=== PATIENT | male | born 1965 | race Caucasian/White ===

== ENCOUNTER 2016-09-17 17:56 | Emergency (ER) | payer OTHER ==
[~2016-09-17] VITALS: Ht 188 cm; Wt 168.8 kg
[~2016-09-17 17:56] MED LIST: ASPEC81 PO; BACL1TAB PO; FEXO1TAB58 PO; FRS/40 PO; GLC/500 PO; HYDR-3983 PO; INSUINJ12 SC; INSUINJ7 SC; LISI40TA PO; OMEP20CA9 PO; OXYC15TA89 PO; PREG1CAP70 PO; SULF800T23 PO; TAMS0.4C38 PO; TMPOPS15 OPB; TRAV0.00 OPB
[2016-09-17 18:07] VITALS: Ht 188 cm; Wt 168.8 kg
[2016-09-17] MEDS ORDERED: XYLOCAINE 1%/SOD BICARB 20 ML VIAL INFIL ONE (18:30)
[2016-09-17] MEDS ORDERED: LORAZEPAM 1 MG TAB SL STA (18:32)
[2016-09-17] MEDS ORDERED: CLC/300 PO (18:54)
[2016-09-17] MEDS ORDERED: TRAV0.00 OP (18:54)
[2016-09-17] MEDS ORDERED: LISI40TA PO (18:54)
[2016-09-17] MEDS ORDERED: LVMIPEN SQ (18:54)
[2016-09-17] MEDS ORDERED: HYDR-3983 PO (18:54)
[2016-09-17] MEDS ORDERED: IBUP-1428 PO (18:54)
[2016-09-17] MEDS ORDERED: TMPOPS15 OPB (18:54)
[2016-09-17] MEDS ORDERED: OXYC15TA89 PO (18:54)
[2016-09-17] MEDS ORDERED: NVLGI/PEN SQ (18:54)
[2016-09-17] MEDS ORDERED: FRS/40 PO (18:54)
[2016-09-17] MEDS ORDERED: PRLSR20 PO (18:54)
[2016-09-17] MEDS ORDERED: BACL10TA PO (18:54)
[2016-09-17] MEDS ORDERED: PREG1CAP70 PO (18:54)
[2016-09-17 19:55] LABS: BASO % 0.2 %; HEMATOCRIT 40.3 % (42-52); IG% 0.1 %; LYMPH % 22.3 %; LYMPH ABS # 1.81 K/uL (1.2-3.4); MEAN CELL VOLUME 90.4 fL (80-100); MEAN CORPUSCULAR HEMOGLOBIN 30.7 pg (25-34); MEAN PLATELET VOLUME 10.3 fL (7.4-10.4); MONO % 10.2 %; NEUT % 65.2 %; PLATELET COUNT 206 K/uL (130-400); RED BLOOD COUNT 4.46 M/uL (4.7-6.1); WHITE BLOOD COUNT 8.11 K/uL (4.8-10.8)
[2016-09-17 19:56] LABS: BASO ABS # 0.02 K/uL (0-0.2); COMPLETE YES
[2016-09-17 20:05] LABS: PARTIAL THROMBOPLASTIN RATIO 1.3; PROTHROMBIN TIME (PATIENT) 10.2 SECONDS (9.0-12.0)
[2016-09-17 20:12] LABS: BUN/CREATININE RATIO 22.8 (10-20); CALCIUM 8.5 mg/dl (8.5-10.1); POTASSIUM 4.4 mmol/L (3.5-5.1)
[2016-09-17 20:20] VITALS: BP 128/74; PULSE 86; TEMP 36.6; O2SAT 94
--- NOTE | 2016-09-17 20:25 | EMERGENCY ROOM VISIT NOTE ---
ED Visit Note The patient was fully evaluated by Dr. Monzon. I was asked to perform incision and drainage on the suspected abscess in the right posterior scrotal region. Verbal consent was obtained to perform the procedure. After saline and Betadine cleansing and 1 mL of 1% buffered lidocaine anesthesia, the abscess was incised with a number 11 scalpel blade. Care was taken to ensure that the testes were clear of the region. No purulent material was released. A swab was obtained for culture. The abscess cavity was further probed with a needle milk truck driver and revealed only blood. The area was cleaned with sterile saline and dressed with bacitracin and a bulky bandage. The patient tolerated the procedure well.
--- NOTE | 2016-09-18 01:19 | EMERGENCY ROOM VISIT NOTE ---
History Report prepared by Andres: Shayna Ramirez Under the Supervision of: Dr. Refugio Monzon M.D. First contact with patient: 18:18 Chief Complaint: OTHER COMPLAINT Stated Complaint: CYST - PRIVATE AREA History of Present Illness The patient is a 50 year old male who presents to the Emergency Room with complaints of worsening right-sided scrotal abscess that he noticed a few days ago. He states that there is a cyst on the right side of his scrotum that is painful. The cyst started draining pus yesterday, per the patient's . The patient is diabetic and he states that he has experienced similar abscesses in the past when his sugars are high. He has not had an abscess on his scrotum for several years, but his most recent abscesses have been on his legs. He has had the abscesses drained in the past. He adds that a previous abscess on his leg was not irrigated when it was drained and it came back so he went to his PCP and it resolved after irrigation. The patient's sugars have been high recently and when he measured it earlier today it was 310. He denies fevers, vomiting, and rashes. The patient's states that the patient had dental work done for a root canal a few days ago and started clindamycin yesterday. He is on the clindamycin for seven days. The patient and his thought that the procedure or the antibiotic could be contributing to his sugars being high. The patient states that he has never been diagnosed with MRSA. Source of History: patient, spouse/significant other () Onset: a few days ago Position: other (right side of scrotum) Quality: other (right-sided scrotal abscess) Timing: worsening Associated Symptoms: No fevers, No rash, No vomiting Review of Systems See HPI for pertinent positives & negatives. A total of 10 systems reviewed and were otherwise negative. Past Medical & Surgical Medical Problems: (1) Diabetes Family History No pertinent family history Social History Smoking Status: Current Every Day Smoker Marital Status: Housing Status: lives with family Current/Historical Medications Scheduled Baclofen (Lioresal), 10 MG PO TID Clindamycin HCl (Clindamycin HCl), 300 MG PO TID Furosemide (Lasix), 40 MG PO QAM Ibuprofen (Motrin), 800 MG PO Q8H Insulin Aspart (Novolog Flexpen), 30-50 UNITS SQ SLIDING SCALE Insulin Detemir (Levemir Flextouch), 68 UNITS SQ HS Lisinopril (Zestril), 40 MG PO QAM Omeprazole (Prilosec), 20 MG PO QAM Oxycodone Hcl (Oxycontin), 15 MG PO Q12 Pregabalin (Lyrica), 150 MG PO TID Timolol Maleate (Timolol 0.5% Oph Soln 15 Ml), 1 DROP OPB QAM Travoprost (Travatan Z), 1 DROPS OP HS Scheduled PRN Hydrocodone/Acetaminophen 7.5MG/325MG ([place] 7.5MG/325MG), 2 TABS PO Q6 PRN for Pain Allergies Coded Allergies: BEE STING (Unverified Allergy, Unknown, SWELLING, 09/17/16) Physical Exam Vital Signs Date Time Temp Pulse Resp B/P Pulse Ox O2 Delivery O2 Flow Rate FiO2 09/17/16 20:20 36.6 86 20 128/74 94 09/17/16 18:07 36.6 86 20 128/74 94 Room Air Physical Exam Constitutional: Vital signs reviewed. Eyes: Pupils are equal round reactive to light. Conjunctiva are noninjected. ENT: Pharynx is clear without erythema or exudate. Mucous membranes are moist. Neck supple without meningeal signs. Respiratory: Clear to auscultation bilaterally. Breath sounds are equal bilaterally. Cardiovascular: Regular rate and rhythm. No rubs or gallops. GI: Soft, nondistended and nontender. Bowel sounds are present. : 2 cm x 4 cm cutaneous abscess to the right groin. No drainage or surrounding cellulitis. No crepitus or evidence of Georgi's gangrene. Testicles nontender. Musculoskeletal: No peripheral edema. No lower extremity tenderness. Integumentary: No cyanosis. Neurological: The patient is awake and alert. No focal deficits. Psychiatric: Normal affect. Medical Decision & Procedures Laboratory Results 09/17/16 19:45 Red Blood Count 4.46, Mean Corpuscular Volume 90.4, Mean Corpuscular Hemoglobin 30.7, Mean Corpuscular Hemoglobin Concent 34.0, Mean Platelet Volume 10.3, Neutrophils (%) (Auto) 65.2, Lymphocytes (%) (Auto) 22.3, Monocytes (%) (Auto) 10.2, Eosinophils (%) (Auto) 2.0, Basophils (%) (Auto) 0.2, Neutrophils # (Auto ) 5.28, Lymphocytes # (Auto) 1.81, Monocytes # (Auto) 0.83, Eosinophils # (Auto ) 0.16, Basophils # (Auto) 0.02 09/17/16 19:45 Test 09/17/16 19:45 White Blood Count 8.11 K/uL (4.8-10.8) Red Blood Count 4.46 M/uL (4.7-6.1) Hemoglobin 13.7 g/dL (14.0-18.0) Hematocrit 40.3 % (42-52) Mean Corpuscular Volume 90.4 fL (80-100) Mean Corpuscular Hemoglobin 30.7 pg (25-34) Mean Corpuscular Hemoglobin Concent 34.0 g/dl (32-36) Platelet Count 206 K/uL (130-400) Mean Platelet Volume 10.3 fL (7.4-10.4) Neutrophils (%) (Auto) 65.2 % Lymphocytes (%) (Auto) 22.3 % Monocytes (%) (Auto) 10.2 % Eosinophils (%) (Auto) 2.0 % Basophils (%) (Auto) 0.2 % Neutrophils # (Auto) 5.28 K/uL (1.4-6.5) Lymphocytes # (Auto) 1.81 K/uL (1.2-3.4) Monocytes # (Auto) 0.83 K/uL (0.11-0.59) Eosinophils # (Auto) 0.16 K/uL (0-0.5) Basophils # (Auto) 0.02 K/uL (0-0.2) RDW Standard Deviation 44.2 fL (36.4-46.3) RDW Coefficient of Variation 13.4 % (11.5-14.5) Immature Granulocyte % (Auto) 0.1 % Immature Granulocyte # (Auto) 0.01 K/uL (0.00-0.02) Prothrombin Time 10.2 SECONDS (9.0-12.0) Prothromb Time International Ratio 1.0 (0.9-1.1) Activated Partial Thromboplast Time 32.7 SECONDS (21.0-31.0) Partial Thromboplastin Ratio 1.3 Anion Gap 6.0 mmol/L (3-11) Est Creatinine Clear Calc Drug Dose 149.3 ml/min Estimated GFR () 102.7 Estimated GFR (Non- 88.6 BUN/Creatinine Ratio 22.8 (10-20) Calcium Level 8.5 mg/dl (8.5-10.1) Laboratory results as reviewed by me. Medications Administered Medications (Trade) Dose Ordered Sig/Michelle Route Start Time Stop Time Status Last Admin Dose Admin Lidocaine HCl (Buffered Lidocaine 1% Inj) 20 ml ONE ONCE INFIL 09/17/16 18:30 09/17/16 18:31 DC 09/17/16 18:41 20 ML Lorazepam (Ativan Tab) 1 mg NOW STAT SL 09/17/16 18:32 09/17/16 18:34 DC 09/17/16 18:41 1 MG ED Course 1819: The patient was evaluated in room B11. A complete history and physical exam was performed. 1829: Ordered Lidocaine HCl 20 ml INFIL 1830: I asked Alfredo Marte PA-C to evaluate the patient to perform an incision and drainage on the patient's abscess. He informed me that the patient requested something to help him relax for the procedure. 1831: Ordered Ativan Tab 1 mg SL 1920: Alfredo Marte PA-C has performed an incision and drainage at this time. Please refer to his note for further details. He informed me that there was not any significant drainage from the abscess. 1921: I reevaluated the patient with Alfredo Marte PA-C. The abscess only expressed blood. 2006: I reassessed the patient and reviewed his current test results with him. We are still waiting on his chemistry panel results. 2023: Upon reevaluation, the patient appeared to have improvement of his symptoms. I discussed the remainder of dayanara's findings with him. He verbalized agreement of the treatment plan. He was discharged home. Medical Decision This is a 50-year-old male who presents with a lesion to his right groin. Differential diagnoses considered include cutaneous abscess, scrotal abscess, MRSA, cellulitis, Georgi's gangrene. I did perform a limited focused review of portions of the patient's old chart on the electronic medical record. The patient has had no recent pertinent visits to this hospital. Medication Reconciliation: I attest that I have personally reviewed the patient' s current medication list. Blood Pressure Screening: Patient was found to have normal blood pressure on screening and does not require follow-up. I did evaluate the patient as noted above. The patient has a cutaneous abscess to his right groin. His testicles appear unremarkable. There is no surrounding cellulitis or evidence of Georgi's gangrene. He does have a history of prior abscesses on his legs as well as on the scrotum in the past. He states that he has had no prior history of MRSA. IV access was established. I did order and review the patient's blood work as noted in the electronic medical record. He is not hyperglycemic. I&D was performed on the patient. I did perform the I&D with BUFFY Marte. He did anesthetize and cleanse the area. I did make a small incision over the area where pus had drained earlier. No pus was expressed. A culture was obtained. The patient was advised to follow closely with his doctor within 48 hours for recheck or to return here if unable to do so. He will continue taking his clindamycin which he has a prescription for 7 days. He will return for any worsening symptoms. He was discharged in good condition. Impression Primary Impression: Cutaneous abscess Scribe Attestation The scribe's documentation has been prepared under my direct and personally reviewed by me in its entirety. I confirm that the note above accurately reflects all work, treatment, procedures, and medical decision making performed by me. Departure Information Dispostion Home / Self-Care Referrals No Doctor, Assigned (PCP) Forms HOME CARE DOCUMENTATION FORM, IMPORTANT VISIT INFORMATION, WORK / SCHOOL INSTRUCTIONS Patient Instructions ED Abscess Tanya, Calista [facility] Additional Instructions You have been examined and treated today on an emergency basis only. This is not a substitute for, or an effort to provide, complete comprehensive medical care. It is impossible to recognize and treat all injuries or illnesses in a single emergency department visit. It is therefore important that you follow up closely with your physician in 48 hours for recheck. Call as soon as possible for an appointment. Return for worsening symptoms or if you develop fever, vomiting, or any other concerning symptoms. Problem Qualifiers Primary Impression: Cutaneous abscess Site of cutaneous abscess: other site Qualified Codes: L02.818 - Cutaneous abscess of other sites
[2017-03-06] MEDS ORDERED: INSU3INJ3 SC (12:37)
== END 2016-09-17 20:20 | disposition home or self-care (01) ==
LOC: C.EDB 18:00 → MERGE 18:00 → C.EDB 20:20
DX: N49.2 Inflammatory disorders of scrotum (principal); E11.9 Type 2 diabetes mellitus without complications; F17.200 Nicotine dependence, unspecified, uncomplicated; Z86.14 Personal history of Methicillin resistant Staphylococcus aureus infection; Z79.4 Long term (current) use of insulin; Z79.899 Other long term (current) drug therapy; Z91.030 Bee allergy status

== ENCOUNTER → 2016-11-18 | Outpatient (CLI) | payer OTHER ==
[~2016-11-18] MED LIST changes: +BACL10TA PO; +CLC/300 PO; +IBUP-1428 PO; +LVMIPEN SQ; +NVLGI/PEN SQ; +PERFLUTREN LIPID MICROSPHERE (DEFINITY) IV ONE; +PRLSR20 PO; +TRAV0.00 OP
--- NOTE | 2016-11-18 12:15 | DIAGNOSTIC IMAGING REPORT ---
LEFT ELBOW MIN 3 VIEWS ROUTINE CLINICAL HISTORY: 51 years-old Male presenting with numbness down the arm, injured a few months ago, pain down the arm to the level of the fingers. TECHNIQUE: Frontal, oblique, and lateral views of the left elbow were obtained. COMPARISON: None. FINDINGS: No acute fracture or malalignment. No radiopaque foreign body. No gross evidence of elbow joint effusion. Soft tissues normal. IMPRESSION: No acute osseous injury of the left elbow. Electronically signed by: Lui Dennis M.D. 11/18/2016 12:14 PM Dictated Date/Time: 11/18/2016 12:13 PM
--- NOTE | 2016-11-18 15:31 | DOBUTAMINE ECHO ---
*NOTICE TO RECEIVING CONSTITUTION PARTY AGENCY This information is strictly Confidential and protected under [place] law. [place] law prohibits you from making any further disclosure of this information unless further disclosure is expressly permitted by the written consent of the person to whom it pertains or is authorized by law. A general authorization for the release of medical or other information is not sufficient for this purpose. Hospital accepts no responsibility if the information is made available to any other person, INCLUDING THE PATIENT. Interpretation Summary * Name: MAGDA BRADY JR Study Date: 11/18/2016 10:09 AM BP: 123/68 mmHg * Patient Location: [facility] HR: 62 * : 1965 (M/d/yyyy) Gender: Male Height: 75 in * Age: 51 yrs Ethnicity: [place] Weight: 368 lb * Ordering Physician: Essie Mckee * Referring Physician: Essie Mckee PA-C * Performed By: Tahmina Nye RCS * * Reason For Study: Dyspnea * BSA: 2.8 m2 * -- Conclusions -- * 1. Severely technically limited study due to patient's body habitus. * 2. Non-diagnostic exercise stress echo due to inability to reach targert heart rate (MPHR 70%). * 3. Borderline ST changes, 0.[address] depressions in inferior leads with exercise. * 4. Severely reduced functional capacity. Exercised 3:12, acheiving 4.8 METS. Study stopped due to fatigue. * 5. Grossly normal LV size and function at rest. LVEF 55-60%. Grade II diastolic function. Grossly normal RV size and function. No apparent valvular pathology. * 6. Consider pharmacologic SPECT for further evaluation as indicated. Procedure Details * The study was technically difficult with many images being suboptimal in quality. * A contrast injection of Definity was performed to improve assessment of LV function. * Contrast was injected into an intravenous site in the right arm. * One vial of Definity ultrasound contrast was diluted in normal saline to a total volume of 10 ml. A total of '7' ml of solution was administered during imaging. * Lot # [id number] of Definity utilized for procedure. * Expiration date 1A. * The attending nurse who injected the contrast agent was MAX DALTON RN. Left Ventricle * The left ventricle is grossly normal size. * There is mild concentric left ventricular hypertrophy. * Ejection Fraction = 55-60%. Right Ventricle * The right ventricle is not well visualized. * The right ventricle is grossly normal size. * The right ventricular systolic function is qualitatively normal. Atria * The left atrium is mildly dilated. * The right atrium is mild to moderately dilated. * There is no evidence of atrial septal defect, but resolution does not allow assessment for a patent foramen ovale. Mitral Valve * The mitral valve is not well visualized. * There is no mitral valve stenosis. * There is trace mitral regurgitation. Tricuspid Valve * The tricuspid valve is not well visualized. * Significant tricuspid regurgitation is absent. Aortic Valve * The aortic valve is not well visualized. * No hemodynamically significant valvular aortic stenosis. * There is no significant aortic regurgitation. Pulmonic Valve * The pulmonic valve is not well visualized. Great Vessels * The aortic root and proximal ascending aorta are normal sized. Pericardium * There is no pericardial effusion. Stress Parameters * Normal baseline electrocardiogram. * There was a maximum .[address] segment depression in the inferior lead(s). * Rest heart rate was '57' BPM. * Rest blood pressure was '123/48' * Maximum heart rate achieved was 120 bpm. * Maximum heart rate was 70 % of maximum age-predicted heart rate. * Maximum blood pressure was '142/66' * Total exercise time was '3:12' * Maximum exercise MET level achieved was '4.8' METS * Maximum treadmill speed was '2.5' miles per hour. * Maximum treadmill elevation was '12'% grade. * Exercise was terminated due to 'Fatigue' * Target Heart Rate was not achieved due to dyspnea. * Exercise was stopped due to fatigue. Left Ventricular Findings with Stress * The study was technically limited with all images being suboptimal in quality. Left Ventricular Diastolic Function * Diastolic dysfunction, Grade II (pseudonormalization pattern). MMode 2D Measurements and Calculations IVSd 1.2 cm LVIDd 5.7 cm LVIDs 2.7 cm LVPWd 1.4 cm IVS/LVPW 0.83 FS 52.4 % EDV(Teich) 160.3 ml ESV(Teich) 27.4 ml EF(Teich) 82.9 % EDV(cubed) 185.6 ml ESV(cubed) 20.0 ml EF(cubed) 89.2 % LV mass(C)d 316.4 grams LV mass(C)dI 111.3 grams/m\S\2 SV(Teich) 132.9 ml SI(Teich) 46.7 ml/m\S\2 SV(cubed) 165.6 ml SI(cubed) 58.2 ml/m\S\2 Doppler Measurements and Calculations MV E max nataly 93.1 cm/sec MV A max nataly 59.7 cm/sec MV E/A 1.6 MV dec time 0.19 sec Ao V2 max 112.7 cm/sec Ao max PG 5.1 mmHg Ao max PG (full) 0.93 mmHg LV V1 max PG 4.2 mmHg LV V1 max 101.9 cm/sec
== END | disposition home or self-care (01) ==
LOC: C.CPL 09:33
PROVIDERS: ATTEND Physician Assistant
DX: R20.0 Anesthesia of skin (principal); R06.09 Other forms of dyspnea

== ENCOUNTER 2017-03-08 12:16 | Emergency (ER) | payer OTHER ==
[~2017-03-08] VITALS: Ht 190.5 cm; Wt 168.6 kg
[~2017-03-08 12:16] MED LIST changes: +INSU3INJ3 SC; -PERFLUTREN LIPID MICROSPHERE (DEFINITY) IV ONE
[2017-03-08 12:18] VITALS: TEMP 36.5; Ht 190.5 cm; Wt 168.6 kg
[2017-03-08] MEDS ORDERED: FLM4 PO (12:37)
[2017-03-08] MEDS ORDERED: HYD50 PO (12:38)
[2017-03-08] MEDS ORDERED: LIDO/EPINEPHRINE/SOD BICARB 20 ML VIAL INFIL ONE (12:45)
[2017-03-08] MEDS ORDERED: CEPH500C2 PO (13:30)
[2017-03-08] MEDS ORDERED: SULF800T23 PO (13:30)
--- NOTE | 2017-03-08 13:31 | EMERGENCY ROOM VISIT NOTE ---
ED Visit Note First contact with patient: 12:24 CHIEF COMPLAINT: Left buttock abscess 5 days HISTORY OF PRESENT ILLNESS: Patient is a 51-year-old white male who presents to the emergency department for evaluation of an abscess on the left buttocks that has been present for about 5 days. He noticed a red, warm, tender area on the inner aspect of the left buttock, near the gluteal crease last Monday. They started applying warm compresses and taking hot showers, and they were able to squeeze and manipulate the area to get some bloody, pus like discharge to drain on several occasions. He was seen at his PCP yesterday, where apparently they were not comfortable performing an I&D in the office, and referred him to general surgery. No antibiotics were started. Apparently patient contacted general surgery today and they directed him to the emergency department for intervention. He has a history of 2 scrotal abscesses in the past, but has never had an abscess at this site. He denies any fever or chills. No difficulty urinating or moving his bowels. He rates his discomfort a 7.5/10. He reports that his blood sugars have been well-controlled, despite the infection. He checked it just prior to coming to the emergency department and it was 120. REVIEW OF SYSTEMS: Review of systems as per HPI. All other systems reviewed were negative. 10 systems reviewed. PMH: Electronic medical records are reviewed and summarized as above/below. See Problem List. SOCIAL HISTORY: Patient lives at home. He is not employed. Smoker. PHYSICAL EXAM: Vital Signs: Reviewed Nurse's notes. CONSTITUTIONAL: Patient is a morbidly obese 51-year-old white male who is awake and alert and in no acute distress. INTEGUMENTARY: Examination of the patient's buttock, at the top of the medial cleft, to the left, there is a small, tender, minimally fluctuant area consistent with the scabbed over abscess. There is some surrounding induration , no overt cellulitic changes. The perirectal and the perianal areas are not involved. No lymphangitic streaking noted. EMERGENCY DEPARTMENT COURSE: Area was cleansed with Betadine, and anesthetized with 1% buffered lidocaine with epinephrine. The area of maximal fluctuance was incised with an 11 blade. There was scant purulent material which drained, there was definitely a well-defined cavity, probed with forceps to about a depth of 2-1/2 cm, however no significant loculations were noted. There was again, no overt cellulitic changes or significant pus like range after I&D. The abscess cavity was irrigated copiously using normal saline solution and diluted Betadine, playing.packing dipped in Betadine was placed. Patient will be placed on Bactrim and Keflex pending the culture, however I suspect the I&D may be adequate given the appearance of time. this certainly does not involve the perirectal or the perianal area. I do not suspect involvement or Georgi's gangrene. He has a female friend here today who is comfortable removing the packing in 48 hours. He should otherwise follow up with his PCP/ general surgery for recheck next week. Blood pressure screening: Patient was found to have an elevated blood pressure and was referred to their primary doctor for recheck and further treatment. Medication reconciliation: I attest that I have personally reviewed the patient' s current medication list. Problem List Medical Problems: (1) Abscess of right thigh Status: Resolved (2) Acute bronchitis Status: Resolved (3) Acute bronchitis Status: Resolved (4) Cellulitis of left leg Status: Resolved (5) Congestive Heart Failure Nos Status: Resolved (6) Coronary Atherosclerosis Of [place] Coronary Vessel Status: Chronic (7) Cutaneous abscess Status: Resolved (8) Dehydration Status: Resolved (9) Diabetes Status: Chronic (10) Ear pain, left Status: Resolved (11) Ear pain, left Status: Resolved (12) Eustachian tube dysfunction Status: Resolved (13) Gastro-Esophageal Reflux Disease Without Esophagitis Status: Chronic (14) Gastroenteritis Status: Resolved (15) Hypertension Nos Status: Chronic (16) Hypoglycemia Status: Resolved (17) Left ear pain Status: Resolved (18) Lumbago Status: Chronic (19) Morbid Obesity Status: Chronic (20) Obstructive Sleep Apnea (Adult) (Pediatric) Status: Chronic (21) Venous Insufficiency Nos Status: Chronic (22) Wound of left leg Status: Resolved Surgical Problems: (1) History of back surgery Status: Resolved (2) History of carpal tunnel release Status: Resolved Current/Historical Medications Scheduled Baclofen (Lioresal), 10 MG PO TID Cephalexin Monohydrate (Keflex), 500 MG PO QID Hydrochlorothiazide (Hydrochlorothiazide), 1 TAB PO DAILY Ibuprofen (Motrin), 800 MG PO Q8H Insulin Aspart (Novolog Flexpen), 20-30 UNITS SQ SLIDING SCALE Insulin Detemir (Levemir Flextouch), 78 UNITS SC HS Omeprazole (Prilosec), 20 MG PO QAM Oxycodone Hcl (Oxycontin), 15 MG PO Q12 Pregabalin (Lyrica), 150 MG PO TID Sulfa/Trimethoprim (Bactrim Ds 800MG/160MG), 1 TAB PO BID Tamsulosin HCl (Tamsulosin HCl), 1 TAB PO DAILY Timolol Maleate (Timolol 0.5% Oph Soln 15 Ml), 1 DROP OPB DAILY Travoprost (Travatan Z), 1 DROPS OP HS Scheduled PRN Hydrocodone/Acetaminophen 7.5MG/325MG ([place] 7.5MG/325MG), 2 TABS PO Q6 PRN for Pain Allergies Coded Allergies: BEE STING (Verified Allergy, Mild, 03/08/17) Vital Signs Date Time Temp Pulse Resp B/P (MAP) Pulse Ox O2 Delivery O2 Flow Rate FiO2 03/08/17 12:18 36.5 78 20 174/76 95 Room Air Departure Information Impression Primary Impression: Left buttock abscess Prescriptions Sulfa/Trimethoprim (Bactrim Ds 800MG/160MG) Tab 1 TAB PO BID, #14 TAB Prov: Suzanne Quach PA 03/08/17 Cephalexin Monohydrate (KEFLEX) 500 Mg Cap 500 MG PO QID for 7 Days, #28 CAP Prov: Suzanne Quach PA 03/08/17 Referrals No Doctor, Assigned (PCP) Patient Instructions [facility] Additional Instructions Cephalexin(Keflex) 500mg: Take one pill four times daily for 7 days for your skin infection. All antibiotics can cause diarrhea. If this occurs and you feel worse or it does not resolve in 1-2 days follow up with your doctor or return to the Emergency Department as this could be signs of serious underlying problems. Any medication can cause an allergic reaction, stop the pills immediately and return to the ER for rash, hives, breathing difficulties, or swelling. Trimethoprim-Sulfamethoxazole(Bactrim DS): Take one pill twice daily for 7 days for your skin infection. All antibiotics can cause diarrhea. If this occurs and you feel worse or it does not resolve in 1-2 days follow up with your doctor or return to the Emergency Department as this could be signs of serious underlying problems. Any medication can cause an allergic reaction, stop the pills immediately and return to the ER for rash, hives, breathing difficulties, or swelling. Ibuprofen(Motrin, Advil) may be used for fever or pain. Use 600mg every six hours as needed. Take with food. Avoid using more than 2400mg in a 24 hour period. Do not use 2400mg per day for more than three consecutive days without physician direction. Prolonged inappropriate use can lead to stomach upset or ulcers. (AND/OR) Acetaminophen(Tylenol) may be used for fever or pain. Use 1000mg every six hours as needed. Avoid using more than 3000mg in a 24 hour period. Warm compresses to the affected area 4 times daily for 15-20 minutes. Dressing changes daily, more often if bandage becomes saturated or soiled. May shower. Be careful to not remove the packing inadvertently, when they were performing dressing changes. Packing removal in 48 hours. Rest and drink plenty of fluids. Continue current medications. Return to the ER for severe pain, persistent fevers, spreading redness, or any worsening of your condition. Follow up with your primary physician next week for a recheck of the current condition.
--- NOTE | 2017-03-08 13:53 | EMERGENCY ROOM VISIT NOTE ---
ED Visit Note First contact with patient: 12:24 The patient was seen and examined with Birdie Quach PA-C. I agree with the history, physical and findings. Please see the note for disposition and details.
[2017-03-08 13:55] VITALS: BP 147/79; PULSE 87; O2SAT 97
== END 2017-03-08 13:56 | disposition home or self-care (01) ==
LOC: C.EDB 12:18 → C.EDD 13:56
DX: L02.31 Cutaneous abscess of buttock (principal); F17.200 Nicotine dependence, unspecified, uncomplicated; E11.9 Type 2 diabetes mellitus without complications; I25.10 Atherosclerotic heart disease of native coronary artery without angina pectoris; I10 Essential (primary) hypertension; K21.9 Gastro-esophageal reflux disease without esophagitis; Z98.890 Other specified postprocedural states; Z79.4 Long term (current) use of insulin; Z79.899 Other long term (current) drug therapy

== ENCOUNTER → 2017-07-24 | Outpatient (CLI) | payer OTHER ==
[~2017-07-24] MED LIST changes: -ASPEC81 PO; -BACL1TAB PO; -CLC/300 PO; -FEXO1TAB58 PO; +FLM4 PO; -FRS/40 PO; -GLC/500 PO; +HYD50 PO; -INSUINJ12 SC; -INSUINJ7 SC; -LISI40TA PO; -LVMIPEN SQ; -OMEP20CA9 PO; -TAMS0.4C38 PO; -TRAV0.00 OPB
--- NOTE | 2017-07-24 16:29 | DIAGNOSTIC IMAGING REPORT ---
ULTRASOUND LEFT LOWER EXTREMITY VENOUS CLINICAL HISTORY: Left leg edema. COMPARISON STUDY: Left lower extremity venous ultrasound dated 03/03/2007 TECHNIQUE: Real-time, grayscale, and color Doppler sonography of the deep veins of the left lower extremity was performed from the inguinal crease to the calf. Compression was utilized with tolerated. The examination is degraded by large body habitus and by inability of the patient to Hutchins tolerate compression. FINDINGS: There is no sonographic evidence of deep venous thrombosis identified in the left lower extremity. The common femoral, superficial femoral, and popliteal veins are patent and normally compressible. The greater saphenous vein and the profunda femoris vein at the junction with the common femoral vein are clear. The visualized calf veins are patent. IMPRESSION: There is no sonographic evidence of deep venous thrombosis identified in the left lower extremity. Electronically signed by: Lazarus Montes M.D. 07/24/2017 4:28 PM Dictated Date/Time: 07/24/2017 4:27 PM
== END | disposition home or self-care (01) ==
LOC: C.ULTR 15:47
PROVIDERS: ATTEND Physician Assistant
DX: L53.9 Erythematous condition, unspecified (principal); R60.0 Localized edema

== ENCOUNTER → 2017-09-12 | Outpatient (CLI) | payer OTHER ==
[~2017-09-12] MED LIST changes: -SULF800T23 PO
--- NOTE | 2017-09-12 08:59 | DIAGNOSTIC IMAGING REPORT ---
DOUBLE CONTRAST BARIUM ESOPHAGRAM CLINICAL HISTORY: Belching and dyspnea. COMPARISON STUDY: Abdominal CT dated 03/12/2016. TECHNIQUE: A standard air contrast barium esophagram is performed. Multiple spot images of the esophagus are acquired both upright and prone. FINDINGS: The patient swallowed barium and the barium pill without difficulty. The mucosal pattern is normal. Minimal dysmotility is seen in the distal third. There is no evidence of intrinsic or extrinsic mass lesion. No aspiration was seen. The gastroesophageal junction distended normally. Gastroesophageal reflux was observed during the examination. There is a small hiatal hernia. Fluoroscopy time: 1 minute. Fluoroscopic images: 22 IMPRESSION: 1. Gastroesophageal reflux was observed during the examination. 2. Small hiatal hernia. Electronically signed by: Lazarus Montes M.D. 09/12/2017 8:58 AM Dictated Date/Time: 09/12/2017 8:55 AM
== END | disposition home or self-care (01) ==
LOC: C.RAD 08:13
PROVIDERS: ATTEND Physician Assistant
DX: R06.02 Shortness of breath (principal); R14.2 Eructation; K21.9 Gastro-esophageal reflux disease without esophagitis; K44.9 Diaphragmatic hernia without obstruction or gangrene

== ENCOUNTER → 2017-11-16 | Outpatient (CLI) | payer OTHER ==
--- NOTE | 2017-11-16 12:46 | DIAGNOSTIC IMAGING REPORT ---
CHEST 2 VIEWS ROUTINE HISTORY: 52 years-old Male SOB, COUGH acute cough with shortness of breath COMPARISON: Chest radiographs 03/12/2016 TECHNIQUE: PA and lateral views of the chest FINDINGS: Cardiomediastinal and hilar silhouettes are within normal limits. There is no pneumothorax, pleural effusion, focal airspace consolidation or overt pulmonary edema. The bones of the chest appear grossly intact. There are degenerative changes of the shoulders and spine. IMPRESSION: No acute process. The above report was generated using voice recognition software. It may contain grammatical, syntax or spelling errors. Electronically signed by: oRberto Carlos Carbajal M.D. 11/16/2017 12:45 PM Dictated Date/Time: 11/16/2017 12:44 PM
== END | disposition home or self-care (01) ==
LOC: C.RAD 12:14
PROVIDERS: ATTEND Physician Assistant
DX: R06.02 Shortness of breath (principal); R05 Cough

== ENCOUNTER 2022-07-21 11:57 | Observation (INO) ==
[2022-07-21] MEDS ORDERED: SODIUM CHLORIDE 0.9% 1000ML 1,000 ML IV STA (12:07)
--- NOTE | 2022-07-21 12:07 | ED Triage Note ---
Date of Service July 21, 2022 History of Present Illness This patient was briefly evaluated while in triage. An abbreviated physical exam was performed. This patient is a 56-year-old Male who presents to the ED for evaluation of upper abdominal pain with no bowel movements for the past 4 days. The patient has taken stool softeners and laxative without relief. He has also been noted male intake and portillo. Patient did have a colonoscopy last February, and reported that his bowel was not completely encouraged at that time. Patient denies any vomiting or fever. Physical Exam CONSTITUTIONAL: Morbidly obese in moderate discomfort. HEENT: No scleral icterus or conjunctival injection/pallor RESPIRATORY: Clear to auscultation bilaterally with no wheezing, crackles, rhonchi or stridor. CARDIOVASCULAR: Regular rate and rhythm with no murmurs, rubs or gallops. GASTROINTESTINAL: Bowel sounds present in all quadrants. Patient has generalized upper abdominal tenderness to palpation. No abdominal rigidity, guarding or rebound. INTEGUMENTARY: No rash or other significant dermatologic conditions noted. HEMATOLOGIC: No ecchymosis or petechiae. PSYCHIATRIC: Positive affect. NEUROLOGIC: No focal neurologic deficits noted. Initial orders for labs and / or imaging were placed and patient was placed in the waiting area until a bed is available. Please see further documentation for the full ED course.
--- NOTE | 2022-07-21 13:19 | XRay Report ---
XR abdomen 2V w PA chest CLINICAL HISTORY: Abd pain TECHNIQUE: 2 views of the abdomen were obtained. A single view of the chest was obtained. Comparison: Comparison is made to chest radiograph 03/10/2016 FINDINGS: No lines and tubes are seen. Cardiomegaly is noted. The lungs are clear. No evidence of pleural effus ion or pneumothorax. Posterior fixation hardware is seen in the lumbar spine. The bowel gas pattern is nonobstructive. A m oderate amount of stool is noted within the large bowel. IMPRESSION: Nonobstructive bowel gas pattern. ACT 112: Negative or not required by law. Electronically signed by: Edwin Mathis M.D. 07/21/2022 1:17 PM
[2022-07-21 13:52] LABS: Basophils # (auto) 0.01 K/uL (0-0.2); Basophils % (auto) 0.1 %; Eosinophils # (auto) 0.07 K/uL (0-0.50); Eosinophils % (auto) 0.7 %; Hematocrit (blood only) 45.5 % (42.0-52.0); Immature Granulocytes # (auto) 0.04 K/uL (0.01-0.20); Immature Granulocytes % (auto) 0.4 %; Lymphocytes # (auto) 1.64 K/uL (1.2-3.4); Lymphocytes % (auto) 16.6 %; Mean Corpuscular Hemoglobin 31.3 pg (25.0-34.0); Mean Corpuscular Hgb Conc 35.2 g/dL (32.0-36.0); Mean Platelet Volume 10.8 fL (9.4-12.4); Monocytes # (auto) 0.75 K/uL (0.11-0.59); Monocytes % (auto) 7.6 %; Neutrophils # (auto) 7.34 K/uL (1.40-6.50); Neutrophils % (auto) 74.6 %; Platelet Count 215 K/uL (130-400); RDW Coefficient of Variation 13.2 % (11.5-14.5); RDW Standard Deviation 43.1 fL (36.4-46.3); Red Blood Count 5.11 M/uL (4.70-6.10); White Blood Count 9.85 K/ul (4.8-10.8)
[2022-07-21 14:29] LABS: Troponin I High Sensitivity 17.1 pg/ml (0-20)
[2022-07-21 14:38] LABS: Albumin Level 4.2 gm/dl (3.4-5.0); Anion Gap 8 (3-11); Bilirubin,Total 0.7 mg/dl (0.2-1.0); Calcium 9.8 mg/dl (8.6-10.3); Carbon Dioxide 25 mmol/L (21-32); Chloride 98 mmol/L (98-107); Potassium 4.4 mmol/L (3.5-5.1); Sodium 131 mmol/L (136-145)
[2022-07-21 14:44] LABS: Alanine Aminotransferase 16 U/L (7-52); Albumin Globulin Ratio 1.2 (0.9-2); Alkaline Phosphatase 57 U/L (34-104); Aspartate Aminotransferase 13 U/L (13-39); BUN Creatinine Ratio 16.2 (10-20); Blood Urea Nitrogen 17 mg/dl (6-23); Est GFR (African American) 92.8 ml/min; Est GFR (Non-African American) 80.1 ml/min; Globulin 3.5 gm/dl (2.5-4.0); Glucose 181 mg/dl (70-99(Fasting)); Lipase 22 U/L (11-82); Total Protein 7.7 gm/dl (6.0-8.3)
[2022-07-21] MEDS ORDERED: MoRPHine SULFATE 10 MG/ML CARP/VIAL IV STA (14:57)
[2022-07-21] MEDS ORDERED: SODIUM CHLORIDE 0.9% 1000ML 2,000 ML IV ONE (14:57)
[2022-07-21] MEDS ORDERED: ONDANSETRON INJ 2 MG/ML 2 ML VIAL IV STA (14:57)
--- NOTE | 2022-07-21 15:01 | Emergency Department Note ---
Impression & Plan Abdominal pain, Cholelithiasis ED Provider Note NAME: MAGDA BRADY JR AGE: 56 SEX: M : 1965 ARRIVES VIA: Walk-In INFORMANT: Patient ED PROVIDER(S): Ayad Chavez DO CHIEF COMPLAINT: abdominal pain HPI: Patient is a 56-year-old male who presents to the ER for periumbilical abdominal pain associated with nausea but no vomiting. He has not had a bowel movement in 4 days. Denies any headache or change in vision. No chest pain or shortness of breath. Is worse after eating and does get some pain that radiates up into the chest after eating. No dysuria, urgency, or frequency. Notes he has been urinating less due to the pain. No previous abdominal surgeries. No other exacerbating or remitting factors. PAST MEDICAL HISTORY:See Below PAST SURGICAL HISTORY:See Below FAMILY HISTORY:See Below SOCIAL HISTORY:See Below HOME MEDICATIONS:See Below ALLERGIES:See Below VITALS:See Below PHYSICAL EXAMINATION: GENERAL: Sitting up in bed, alert, well appearing, well nourished, no distress, non-toxic EYE EXAM: normal conjunctiva. OROPHARYNX: mucous membranes are moist LUNGS: Clear to auscultation. Normal chest wall mechanics HEART: no murmurs, S1 normal and S2 normal ABDOMEN: abdomen soft, mild tenderness to palpation epigastric and RUQ, normo- active bowel sounds, no masses, no rebound or guarding. UPPER EXTREMITIES: upper extremities are grossly normal. LOWER EXTREMITIES: No pitting edema. NEURO EXAM: Normal sensorium, cranial nerves II-XII grossly intact, normal speech, no gross weakness of arms, no gross weakness of legs. MEDICAL DECISION MAKING: Patient is a 56-year-old male who presents ER for above-stated complaint. External records were reviewed. IV was established blood work was obtained. Labs show no significant leukocytosis or anemia. BMP with mild hyponatremia at 131. LFTs bilirubin was unremarkable. Troponin was negative. Lipase is unremarkable. UA was clean. COVID was negative. He is acutely tender in the epigastric/right upper quadrant. He was given 2 doses of IV morphine as well as Zofran and fluids. CT abdomen pelvis showed cholelithiasis with a distended gallbladder. Discussed with general surgery as he was tender they recommended admission to medicine and a HIDA scan. Discussed with the hospitalist for further evaluation and management Dr. Rodriguez. Triage Nursing notes reviewed. Limited review of prior medical records performed Vital Signs: reviewed and remarkable for no significant abnormalities Differential diagnosis: Differential diagnoses includes but is not limited to gastritis, peptic ulcer disease, GERD, gallbladder disease, pancreatitis, small bowel obstruction, appendicitis, diverticulitis, hernia, urinary tract infection, torsion, perforation, trauma, infectious. ER treatment provided: See below Diagnostics interpreted by me include EKG and cardiac monitoring as listed below: -Cardiac Monitoring: An order was placed for continuous cardiac monitoring. The monitor shows a rate of 70 with sinus rhythm. -ECG: Sinus bradycardia rate of 56 Normal axis Right bundle branch block QTc 422 -Laboratory studies:Interpreted by me as stated above in MDM and shown below. Imaging studies: Xrays: As interpreted by me: Obstruction series shows nonspecific bowel gas pattern CTs show: CT abdomen pelvis shows distended gallbladder but no acute pathology Consultation(s): As described in MDM Procedures:none Critical Care: None Past Med/Surg History Medical History (Updated 07/21/22 @ 19:36 by Ayad Chavez DO) Anxiety BPH (benign prostatic hyperplasia) Depression Diabetes mellitus type 1 GERD (gastroesophageal reflux disease) Glaucoma Hiatal hernia Hyperlipidemia Hypertension Osteoarthritis Peripheral neuropathy Sleep apnea not currently using CPAP, sleeping in recliner Surgical History Cellulitis of leg RT/LEFT LEG ABLATIONS? Cyst REMOVAL Fusion of spine LUMBAR; L3-L5 History of anesthesia reaction CYST REMOVAL WAS TOLD "ALMOST LOST ON TABLE BY NURSE">UNSURE OF DETAILS History of carpal tunnel release LEFT History of tooth extraction Hx of colonoscopy Family History Mother Family history of diabetes mellitus Social History Smoking Status: Current every day smoker Cigarettes Per Day: 30 -ADVISED; Second Hand Exposure: No; Hx Alcohol Use: No Hx Substance Use: No Preferred Language: Salvadorean Communication Ability: Effective Gore Maker Required: No Beliefs That Will Affect Care: None Current Living Situation: Other Current Living Situation Comment: FRIEND Feels Safe at Home: Yes Assistive Devices: Cane, CPAP and Glasses Allergies Allergies Allergy/AdvReac Type Severity Reaction Status Date / Time bee venom protein (honey bee) Allergy Severe Swelling Verified 07/21/22 16:55 of Lip/Tongue/Throat gabapentin [From Neurontin] AdvReac Severe Confusion Verified 07/21/22 16:55 Home Meds Home Medications Medication Instructions Recorded Confirmed baclofen 10 mg tablet 10 mg PO TID 12/26/17 07/21/22 hydrochlorothiazide 50 mg tablet 50 mg PO QAM 12/26/17 07/21/22 hydrocodone 7.5 mg-acetaminophen 1 tab PO QID PRN Pain 12/26/17 07/21/22 325 mg tablet insulin aspart U-100 100 unit/mL 1 dose subcut TID 12/26/17 07/21/22 (3 mL) subcutaneous pen (Novolog FlexPen U-100 Insulin aspart) insulin detemir U-100 100 unit/mL 70 unit subcut HS 12/26/17 07/21/22 (3 mL) subcutaneous pen (Levemir FlexTouch U-100 Insulin) lisinopril 40 mg tablet 40 mg PO QAM 12/26/17 07/21/22 metformin 1,000 mg tablet 1,000 mg PO BID 12/26/17 07/21/22 omeprazole 20 mg delayed 1 tab PO QAM 12/26/17 07/21/22 release,disintegrating tablet oxycodone 15 mg tablet,crush 15 mg PO Q12H 12/26/17 07/21/22 resistant,extended release 12 hr (OxyContin) pregabalin 150 mg capsule (Lyrica) 150 mg PO TID 12/26/17 07/21/22 tamsulosin 0.4 mg capsule 0.4 mg PO QAM 12/26/17 07/21/22 timolol 0.25 % eye drops 1 drp OPB QAM 12/26/17 07/21/22 travoprost 0.004 % eye drops 1 drp OPB PM 12/26/17 07/21/22 (Travatan Z) aspirin 81 mg tablet,delayed 81 mg PO DAILY 07/21/22 07/21/22 release Results & Data (ED) Vital Signs Vital Signs - 24 hr 07/21/22 12:03 07/21/22 12:07 07/21/22 18:43 Temperature 36.5 C Temperature Source Temporal Artery Scan Pulse Rate 65 Pulse Rate [Finger] 98 H 62 Respiratory Rate 20 20 21 Respiratory Effort / Characteristics Non-Labored Spontaneous Respiratory Depth Normal Respiratory Pattern Regular Blood Pressure 191/78 H Blood Pressure [Right Radial Artery] 164/49 H 121/105 H Blood Pressure Mean 115 Blood Pressure Mean [Right Radial Artery] 87 110 Blood Pressure Position Sitting Blood Pressure Position [Right Radial Artery] Lying Sitting Pulse Oximetry 96 97 96 Oxygen Delivery Method Room Air Room Air Room Air Sepsis Recent Fever Within 48 Hours No Sepsis New/Unexplained Change in Mental Status No Sepsis Action Taken by Nursing No Action Required 07/21/22 19:01 Temperature Temperature Source Pulse Rate 57 L Pulse Rate [Finger] Respiratory Rate Respiratory Effort / Characteristics Respiratory Depth Respiratory Pattern Blood Pressure Blood Pressure [Right Radial Artery] Blood Pressure Mean Blood Pressure Mean [Right Radial Artery] Blood Pressure Position Blood Pressure Position [Right Radial Artery] Pulse Oximetry Oxygen Delivery Method Sepsis Recent Fever Within 48 Hours Sepsis New/Unexplained Change in Mental Status Sepsis Action Taken by Nursing Laboratory Data 07/21/22 13:13 07/21/22 13:13 Lab Results 07/21/22 07/21/22 07/21/22 Range/Units 13:13 13:13 17:14 WBC 9.85 (4.8-10.8) K/ul RBC 5.11 (4.70-6.10) M/uL Hgb 16.0 (14.0-18.0) g/dl Hct 45.5 (42.0-52.0) % MCV 89.0 (80.0-100.0) fL MCH 31.3 (25.0-34.0) pg MCHC 35.2 (32.0-36.0) g/dL RDW Std Deviation 43.1 (36.4-46.3) fL RDW Coeff of [place] 13.2 (11.5-14.5) % Plt Count 215 (130-400) K/uL MPV 10.8 (9.4-12.4) fL Immature Gran % (Auto) 0.4 % Neut % (Auto) 74.6 % Lymph % (Auto) 16.6 % [place] % (Auto) 7.6 % Eos % (Auto) 0.7 % Baso % (Auto) 0.1 % Neut # (Auto) 7.34 H (1.40-6.50) K/uL Lymph # (Auto) 1.64 (1.2-3.4) K/uL [place] # (Auto) 0.75 H (0.11-0.59) K/uL Eos # (Auto) 0.07 (0-0.50) K/uL Baso # (Auto) 0.01 (0-0.2) K/uL Immature Gran # (Auto) 0.04 (0.01-0.20) K/uL Sodium 131 L (136-145) mmol/L Potassium 4.4 (3.5-5.1) mmol/L Chloride 98 (98-107) mmol/L Carbon Dioxide 25 (21-32) mmol/L Anion Gap 8 (3-11) BUN 17 (6-23) mg/dl Creatinine 1.05 (0.6-1.4) mg/dl Est Cr Clr Drug Dosing Not Reportable Est GFR ( Amer) 92.8 ml/min Est GFR (Non-Af Amer) 80.1 ml/min BUN/Creatinine Ratio 16.2 (10-20) Glucose 181 H (70-99(Fasting)) mg/dl Calcium 9.8 (8.6-10.3) mg/dl Total Bilirubin 0.7 (0.2-1.0) mg/dl AST 13 (13-39) U/L ALT 16 (7-52) U/L Alkaline Phosphatase 57 (34-104) U/L Troponin I High Sens 17.1 (0-20) pg/ml Total Protein 7.7 (6.0-8.3) gm/dl Albumin 4.2 (3.4-5.0) gm/dl Globulin 3.5 (2.5-4.0) gm/dl Albumin/Globulin Ratio 1.2 (0.9-2) Lipase 22 (11-82) U/L Urine Color Yellow Urine Appearance Clear (Clear) Urine pH 6.5 (4.5-7.5) Ur Specific [place] 1.018 (1.000-1.030) Urine Protein Negative (Negative) Urine Glucose (UA) Negative (Negative) Urine Ketones Negative (Negative) Urine Blood Negative (Negative) Urine Nitrite Negative (Negative) Urine Bilirubin Negative (Negative) Urine Urobilinogen Negative (Negative) Ur Leukocyte Esterase Negative (Negative) SARS-CoV-2, RNA, NAAT (NEGATIVE) 07/21/22 Range/Units 18:00 WBC (4.8-10.8) K/ul RBC (4.70-6.10) M/uL Hgb (14.0-18.0) g/dl Hct (42.0-52.0) % MCV (80.0-100.0) fL MCH (25.0-34.0) pg MCHC (32.0-36.0) g/dL RDW Std Deviation (36.4-46.3) fL RDW Coeff of [place] (11.5-14.5) % Plt Count (130-400) K/uL MPV (9.4-12.4) fL Immature Gran % (Auto) % Neut % (Auto) % Lymph % (Auto) % [place] % (Auto) % Eos % (Auto) % Baso % (Auto) % Neut # (Auto) (1.40-6.50) K/uL Lymph # (Auto) (1.2-3.4) K/uL [place] # (Auto) (0.11-0.59) K/uL Eos # (Auto) (0-0.50) K/uL Baso # (Auto) (0-0.2) K/uL Immature Gran # (Auto) (0.01-0.20) K/uL Sodium (136-145) mmol/L Potassium (3.5-5.1) mmol/L Chloride (98-107) mmol/L Carbon Dioxide (21-32) mmol/L Anion Gap (3-11) BUN (6-23) mg/dl Creatinine (0.6-1.4) mg/dl Est Cr Clr Drug Dosing Est GFR ( Amer) ml/min Est GFR (Non-Af Amer) ml/min BUN/Creatinine Ratio (10-20) Glucose (70-99(Fasting)) mg/dl Calcium (8.6-10.3) mg/dl Total Bilirubin (0.2-1.0) mg/dl AST (13-39) U/L ALT (7-52) U/L Alkaline Phosphatase (34-104) U/L Troponin I High Sens (0-20) pg/ml Total Protein (6.0-8.3) gm/dl Albumin (3.4-5.0) gm/dl Globulin (2.5-4.0) gm/dl Albumin/Globulin Ratio (0.9-2) Lipase (11-82) U/L Urine Color Urine Appearance (Clear) Urine pH (4.5-7.5) Ur Specific [place] (1.000-1.030) Urine Protein (Negative) Urine Glucose (UA) (Negative) Urine Ketones (Negative) Urine Blood (Negative) Urine Nitrite (Negative) Urine Bilirubin (Negative) Urine Urobilinogen (Negative) Ur Leukocyte Esterase (Negative) SARS-CoV-2, RNA, NAAT NEGATIVE (NEGATIVE) Administered Medications Discontinued Medications Sodium Chloride (Nss 1000ml) 1,000 mls @ 999 mls/hr IV .Q1H1M STA Stop: 07/21/22 13:07 Last Admin: 07/21/22 16:56 Dose: Not Given Documented By: QGV Sodium Chloride (Nss 1000ml) 2,000 mls @ 999 mls/hr IV .Q2H1M ONE Stop: 07/21/22 16:57 Last Infusion: 07/21/22 18:09 Dose: 0 mls/hr Documented By: Admin: 07/21/22 16:04 Dose: 999 mls/hr Documented By: QGV Ioversol (Optiray 320 500ml) 110 ml IV ONCE ONE Stop: 07/21/22 15:45 Last Admin: 07/21/22 15:44 Dose: 110 ml Documented By: SYLVIA Morphine Sulfate (Morphine Sulfate 10 Mg/Ml Carp/Vial) 6 mg IV NOW STA Stop: 07/21/22 14:58 Last Admin: 07/21/22 16:04 Dose: Not Given Documented By: QGV Ondansetron HCl (Ondansetron Inj 2 Mg/Ml 2 Ml Vial) 4 mg IV NOW STA Stop: 07/21/22 14:58 Last Admin: 07/21/22 16:04 Dose: 4 mg Documented By: QGV Imaging Data Radiologist's Impression: Chest/Abdomen X-ray 07/21/22 12:07 XR abdomen 2V w PA chest CLINICAL HISTORY: Abd pain TECHNIQUE: 2 views of the abdomen were obtained. A single view of the chest was obtained. Comparison: Comparison is made to chest radiograph 03/10/2016 FINDINGS: No lines and tubes are seen. Cardiomegaly is noted. The lungs are clear. No evidence of pleural effusion or pneumothorax. Posterior fixation hardware is seen in the lumbar spine. The bowel gas pattern is nonobstructive. A moderate amount of stool is noted within the large bowel. IMPRESSION: Nonobstructive bowel gas pattern. ACT 112: Negative or not required by law. Electronically signed by: Edwin Mathis M.D. 07/21/2022 1:17 PM Abdomen/Pelvis CT 07/21/22 14:[address] WITH IV CONTRAST CT DOSE: 1825.33 mGy.cm HISTORY: Acute mid abdominal pain mid abd pain TECHNIQUE: Multiaxial CT images of the abdomen and pelvis were performed following the IV administration of 110 cc of Optiray, A dose lowering technique was utilized adhering to the principles of ALARA. COMPARISON STUDY: Acute abdominal series radiographs of same day, CT abdomen and pelvis 03/12/2016 FINDINGS: Mild cardiomegaly with mediastinal lipomatosis. Clear lung bases. No pneumatosis or pneumoperitoneum. Spleen is mildly enlarged, 14.2 cm. Liver measures up to 23 cm in length with hepatic steatosis. No hepatic mass or evidence of cirrhosis. Patency of the hepatic and portal veins. Distended gallbladder with cholelithiasis. No CT evidence of acute cholecystitis or b iliary ductal dilation. Unremarkable adrenal glands and pancreas. Mild nonspecific bilateral perinephric stranding. Ill-defined area of decreased attenuation within the superior pole left kidney measuring 1.6 cm on image 160 similar to prior suggestive of a probable cyst. Unremarkable prostate and urinary bladder. Atherosclerosis of the aorta. 9 mm right iliac chain lymph node on image 292 is stable from prior and is likely benign. Additional enlarged iliac chain lymph nodes with large central fatty maylin are also similar prior measuring up to 1.4 cm there are likely benign. Mild nonspecific distal esophageal wall thickening. Redundancy of the sigmoid colon. There is no bowel obstruction or bowel wall thickening. Moderate colonic fecal retention. Normal appendix. No ascites or mesenteric inflammation. Unremarkable soft tissues. 3.9 cm sclerotic focus of the left iliac bone on image 3:15 is unchanged. Posterior interbody maggie and screw fusion hardware at L3-L5 with L4-L5 discectomy. The L3 pedicle screws extend to the inferior endplate. IMPRESSION: 1. No acute intra-abdominal or intrapelvic abnormality. Normal appendix. 2. Distended gallbladder with cholelithiasis. No wall thickening or pericholecystic edema to suggest acute cholecystitis. 3. Hepatosplenomegaly with hepatic steatosis. 4. Additional findings as above. ACT 112: Negative or not required by law. The above report was generated using voice recognition software. It may contain grammatical, syntax or spelling errors. Electronically signed by: Kris Carbajal M.D. 07/21/2022 4:05 PM Discharge Plan Visit Data Chief Complaint: Abdominal Pain Stated Complaint: ABDOMINAL PAIN ED Provider: Ayad Chavez Discharge Problem: Abdominal pain, Cholelithiasis Forms Stand Alone Forms: My [facility] [place] [employer] Prescriptions Prescriptions: No Action hydrochlorothiazide 50 mg Tablet 50 mg PO QAM travoprost [Travatan Z] 0.004 % Drops 1 drp OPB PM baclofen 10 mg Tablet 10 mg PO TID hydrocodone-acetaminophen 7.5-325 mg Tablet 1 tab PO QID PRN (Reason: Pain) timolol 0.25 % Drops 1 drp OPB QAM lisinopril 40 mg Tablet 40 mg PO QAM insulin aspart U-100 [Novolog FlexPen U-100 Insulin] 100 unit/mL Insulin Pen 1 dose subcut TID Rx Instructions: PER SLIDING SCALE, PER PT "USUALLY TAKE 60 UNITS WITH BREAKFAST, 55 UNITS WITH LUNCH & DINNER". pregabalin [Lyrica] 150 mg Capsule 150 mg PO TID Levemir FlexTouch U-100 Insuln 100 unit/mL (3 mL) Insulin Pen 70 unit subcut HS oxycodone [OxyContin] 15 mg Tablet,Oral Only,Ext.Rel.12 Hr 15 mg PO Q12H omeprazole 20 mg Tablet,Disintegrat, Delay Rel 1 tab PO QAM metformin 1,000 mg Tablet 1,000 mg PO BID tamsulosin 0.4 mg Capsule 0.4 mg PO QAM aspirin 81 mg Tablet,Delayed Release (Dr/Ec) 81 mg PO DAILY Referrals Referrals: Fina Woodard CRNP [Primary Care Provider] -
[2022-07-21] MEDS ORDERED: OPTIRAY 320 500ml IV ONE (15:44)
--- NOTE | 2022-07-21 16:06 | CT Scan Report ---
ABDOMEN AND PELVIS CT WITH IV CONTRAST CT DOSE: 1825.33 mGy.cm HISTORY: Acute mid abdominal pain mid abd pain TECHNIQUE: Multiaxial CT images of the abdomen and pelvis were performed following the IV administrat ion of 110 cc of Optiray, A dose lowering technique was utilized adhering to the principles of ALARA . COMPARISON STUDY: Acute abdominal series radiographs of same day, CT abdomen and pelvis 03/12/2016 FINDINGS: Mild cardiomegaly with mediastinal lipomatosis. Clear lung bases. No pneumatosis or pneumop eritoneum. Spleen is mildly enlarged, 14.2 cm. Liver measures up to 23 cm in length with hepatic stea tosis. No hepatic mass or evidence of cirrhosis. Patency of the hepatic and portal veins. Distended g allbladder with cholelithiasis. No CT evidence of acute cholecystitis or biliary ductal dilation. Unr emarkable adrenal glands and pancreas. Mild nonspecific bilateral perinephric stranding. Ill-defined area of decreased attenuation within th e superior pole left kidney measuring 1.6 cm on image 160 similar to prior suggestive of a probable c yst. Unremarkable prostate and urinary bladder. Atherosclerosis of the aorta. 9 mm right iliac chain lymph node on image 292 is stable from prior and is likely benign. Additional enlarged iliac chain ly mph nodes with large central fatty maylin are also similar prior measuring up to 1.4 cm there are likel y benign. Mild nonspecific distal esophageal wall thickening. Redundancy of the sigmoid colon. There is no thaddeus l obstruction or bowel wall thickening. Moderate colonic fecal retention. Normal appendix. No ascites or mesenteric inflammation. Unremarkable soft tissues. 3.9 cm sclerotic focus of the left iliac bone on image 3:15 is unchanged. Posterior interbody maggie and screw fusion hardware at L3-L5 with L4-L5 di scectomy. The L3 pedicle screws extend to the inferior endplate. IMPRESSION: 1. No acute intra-abdominal or intrapelvic abnormality. Normal appendix. 2. Distended gallbladder with cholelithiasis. No wall thickening or pericholecystic edema to suggest acute cholecystitis. 3. Hepatosplenomegaly with hepatic steatosis. 4. Additional findings as above. ACT 112: Negative or not required by law. The above report was generated using voice recognition software. It may contain grammatical, syntax o r spelling errors. Electronically signed by: Kris Carbajal M.D. 07/21/2022 4:05 PM
[2022-07-21 17:28] LABS: Appearance Urine Clear (Clear); Bilirubin Urine Negative (Negative); Blood Urine Negative (Negative); Color Urine Yellow; Glucose Urine UA Negative (Negative); Ketones Urine Negative (Negative); Leukocyte Esterase Urine Negative (Negative); Nitrite Urine Negative (Negative); Protein Urine Negative (Negative); Specific Gravity Urine 1.018 (1.000-1.030); Urobilinogen Urine Negative (Negative); pH Urine 6.5 (4.5-7.5)
[2022-07-21] MEDS ORDERED: MoRPHine SULFATE 4 MG/ML 1 ML CARP\\VIAL IV STA ×2 (17:52→20:22)
--- NOTE | 2022-07-21 17:59 | History & Physical Report ---
Date of Service July 21, 2022 Assessment & Plan (1) Abdominal pain: Plan: Cholelithiasis Patient with postprandial abdominal pain and gallbladder distention without wall thickening or edema on CT CTA/P: 1. No acute intra-abdominal or intrapelvic abnormality. Normal appendix. 2. Distended gallbladder with cholelithiasis. No wall thickening or pericholecystic edema to suggest acute cholecystitis. 3. Hepatosplenomegaly with hepatic steatosis. 4. Additional findings as above. - Gen Surgery: Discussed w/ Dr. Norwood by ER, additional evaluation pending HIDA scan - CXR: No acute findings - Abdominal XR: Nonobstructive bowel gas No fever, chills. No transaminitis. No evidence of choledocholithiasis HIDA pending - Moderate stool retention,? Constipation in the setting of chronic opioid use N.p.o., IVF, With some abdominal pain radiating to chest, no EKG changes and negative troponin. Type II DM Continue basal bolus insulin, uses 70 units insulin at bedtime Goal BSG [id number] N.p.o. 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 Did discuss personally with PCP his admission and ultrasound findings. Okay to use home medications if tolerated, or reasonable IV conversions while inpatient and as long as it is appropriately documented with cause will not violate patient's contract. Patient was in room at the time of this call and agreeable to plan of half-way dosing includes Lyrica 150 mg p.o. 3 times daily, hydrocodone 7.5 mgacetaminophen 4 times daily as needed (prescribed with 3 times daily average use), and oxycodone extended release 15 mg every 12 hours. Also uses baclofen 10 mg p.o. 3 times daily, but generally tries not to use this as it causes sedation. Home meds continued If HIDA scan is negative and daily area dysfunction is not an outpatient pain, would pursue aggressive bowel regimen for chronic narcosis induced constipation. He is with moderate fecal retention on CT. Would recommend checking to see if patient qualifies for [employer] as outpatient Hypertension Hold SONYA pending surgical evaluation Continue hydrochlorothiazide May use amlodipine 5 mg if needed for systolic pressure approaching/above 180 despite pain control Aspirin held pending surgical evaluation. Patient does not have history of NE or stents DVT prophylaxis: SCDs Disposition: Medical surgical CODE STATUS: Full code Diet: N.p.o. (2) Diabetes mellitus type 1: History of Present Illness Primary Care Provider: MENDEZ Bradley Andrea is a 56-year-old male with a past medical history of type II DM, chronic low back pain with postlaminectomy syndrome, obesity, GERD, and hypertension who presents to the ER with periumbilical and right upper quadrant pain worse after eating and which radiates to his chest. Appetite has been decreased due to pain. 2-3 days of RUQ abdominal pain worsened with meals. Appetite decreased. No vomiting. Is constipated at baseline, has had hard stools but no francis stools or diarrhea. No history of gallbladder problems to his knowledge. He is tender in his right upper quadrant. Takes multiple narcotics for chronic pain due to postlaminectomy syndrome. Diabetes has been well controlled, no diabetic gastroparesis to his knowledge. Blood sugars are generally 80s to 130s with no recent change, did take his medications this morning.No heart problems, no hx NE. His appetite has been greatly decreased due to his pain, has been tolerating some liquids and half a bowl of oatmeal otherwise generally has not been eating much due to worsening of his pain. He is a smoker. Does not use alcohol or medical marijuana. Does not use recreational drugs or substances that would interact with anesthesia. Medical History: Reviewed Medications: Reviewed Surgical History: Reviewed Family history: Reviewed Allergies: Reviewed Social History:Tobacco use 1.5ppd. No etoh use. No medical marijuana Code Status: Full code Allergies Allergy/AdvReac Type Severity Reaction Status Date / Time bee venom protein (honey bee) Allergy Severe Swelling Verified 07/21/22 16:55 of Lip/Tongue/Throat gabapentin [From Neurontin] AdvReac Severe Confusion Verified 07/21/22 16:55 Home Medications Medication Instructions Recorded Confirmed Type baclofen 10 mg tablet 10 mg PO TID 12/26/17 07/21/22 History hydrochlorothiazide 50 mg tablet 50 mg PO QAM 12/26/17 07/21/22 History hydrocodone 7.5 mg-acetaminophen 1 tab PO QID PRN Pain 12/26/17 07/21/22 History 325 mg tablet insulin aspart U-100 100 unit/mL 1 dose subcut TID 12/26/17 07/21/22 History (3 mL) subcutaneous pen (Novolog FlexPen U-100 Insulin aspart) insulin detemir U-100 100 unit/mL 70 unit subcut HS 12/26/17 07/21/22 History (3 mL) subcutaneous pen (Levemir FlexTouch U-100 Insulin) lisinopril 40 mg tablet 40 mg PO QAM 12/26/17 07/21/22 History metformin 1,000 mg tablet 1,000 mg PO BID 12/26/17 07/21/22 History omeprazole 20 mg delayed 1 tab PO QAM 12/26/17 07/21/22 History release,disintegrating tablet oxycodone 15 mg tablet,crush 15 mg PO Q12H 12/26/17 07/21/22 History resistant,extended release 12 hr (OxyContin) pregabalin 150 mg capsule (Lyrica) 150 mg PO TID 12/26/17 07/21/22 History tamsulosin 0.4 mg capsule 0.4 mg PO QAM 12/26/17 07/21/22 History timolol 0.25 % eye drops 1 drp OPB QAM 12/26/17 07/21/22 History travoprost 0.004 % eye drops 1 drp OPB PM 12/26/17 07/21/22 History (Travatan Z) aspirin 81 mg tablet,delayed 81 mg PO DAILY 07/21/22 07/21/22 History release Past Med/Surg History Medical History (Updated 07/21/22 @ 18:29 by Lui Stone MD) Anxiety BPH (benign prostatic hyperplasia) Depression Diabetes mellitus type 1 GERD (gastroesophageal reflux disease) Glaucoma Hiatal hernia Hyperlipidemia Hypertension Osteoarthritis Peripheral neuropathy Sleep apnea not currently using CPAP, sleeping in recliner Surgical History Cellulitis of leg RT/LEFT LEG ABLATIONS? 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 NAD. Cooperative. HEENT: Atraumatic, normocephalic. Vision/hearing grossly intact Pulm: CTAB A&P. -wheezes, -rales, -rhonchi. Symmetrical chest rise. No increased work of breathing. No respiratory distress. Cardiac: RRR, -mrg. Radial pulses intact and symmetrical. Abdominal: Right upper quadrant tenderness to palpation. Softly distended, tymp anitic but otherwise nontender without rebound. Skin: Lumbar spine with well-healed postsurgical midline incisions. 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 with symmetrical sensation to soft touch Results & Data Results & Data Vital Signs (Past 12 Hours) Vital Signs Temp Pulse Pulse Resp BP BP Pulse Ox 07/21/22 12:07 98 H 20 164/49 H 97 07/21/22 12:03 36.5 C 65 20 191/78 H 96 O2 Del Method 07/21/22 12:07 Room Air 07/21/22 12:03 Room Air PG Care Time/CCT Total # of Minutes Spent Total Time Spent with Patient: Total time spent is greater than 50% in coordination of care (as documented) at patient's floor/unit and/or counseling patient: Coding Level of Care Code 57221 INT INP/OBS CARE 3/75MIN Diagnoses Abdominal pain R10.9 Diabetes mellitus type 1 E10.9
[2022-07-21] MEDS ORDERED: MAGNESIUM HYDROXIDE SUSP 30 ML UDC PO PRN (20:58)
[2022-07-21] MEDS ORDERED: HYDROCODONE/ACETAMINOPHEN 7.5/325MG TAB PO PRN (20:58)
[2022-07-21] MEDS ORDERED: GLUCOSE 10 TAB/TUBE PO PRN (20:58)
[2022-07-21] MEDS ORDERED: GLUCOSE 40% GEL 15 GM TUBE PO PRN (20:58)
[2022-07-21] MEDS ORDERED: ALUMINUM/MAGNESIUM SUSP 30 ML UDC PO PRN (20:58)
[2022-07-21] MEDS ORDERED: ONDANSETRON INJ 2 MG/ML 2 ML VIAL IV PRN (20:58)
[2022-07-21] MEDS ORDERED: CARBOHYDRATES FOR HYPOGLYCEMIA PO PRN (20:58)
[2022-07-21] MEDS ORDERED: PHARMACY GLYCEMIC MGMT CONSULT PRN (20:58)
[2022-07-21] MEDS ORDERED: GLUCAGON FOR INJ 1 MG VIAL SQ PRN (20:58)
[2022-07-21] MEDS ORDERED: DEXTROSE 50% 50 ML SYRINGE IV PRN (20:58)
[2022-07-21] MEDS ORDERED: ACETAMINOPHEN 325 MG TAB PO PRN (20:58)
[2022-07-21] MEDS ORDERED: TRAVOPROST Z 0.004% OPH SOLN 2.5 ML BTL OPB SCH (21:00)
[2022-07-21] MEDS: PREGABALIN 150 MG CAP PO SCH (21:25)
[2022-07-21] MEDS: oxyCODONE HCL 15 MG TABCR (OxyCONTIN) PO SCH (21:25)
[2022-07-21] MEDS: BACLOFEN 10 MG TAB PO SCH (21:25)
[2022-07-21] MEDS: POLYETHYLENE (MIRALAX) 17 GM PACK PO SCH (21:38)
[2022-07-21] MEDS ORDERED: METHYLNALTREXONE BROMIDE 12 MG/0.6 ML VIAL SQ SCH (21:45)
[2022-07-21] MEDS ORDERED: LANTUS PER UNIT CHARGE SQ SCH (21:45)
--- NOTE | 2022-07-21 22:27 | Surgery Consultation ---
Date of Consultation July 21, 2022 Assessment & Plan (1) Cholelithiasis: (2) Abdominal pain: The patient has been admitted on the hospitalist service. The cause of his abdominal pain has not yet been ascertained. Due to the presence of a distended gallbladder with gallstones and no convincing evidence of cholecystitis a HIDA scan has been ordered for further evaluation of his gallbladder as a cause of his abdominal pain. At the present time the patient was noted to have normal LFTs. At the time of my exam he did not have an acute abdomen so we will therefore wait for the results of the HIDA scan with further recommendations to follow based on these results. We will continue to follow while the patient is hospitalized Supervising Physician Co-Signing Physician Notes I personally saw and evaluated the patient with Lei Jaeger PA-C and agree with the assessment and plan. 56-year-old male with cholelithiasis and constipation, questionable cholecystitis Patient is being admitted to the medical service, keep n.p.o. give IV antibiotics His CT images and results were personally viewed by myself, no signs of cholecystitis on CT but does have gallstones Would recommend getting a HIDA scan to rule out acute cholecystitis Further recommendations pending HIDA results History of Present Illness Reason for Consultation: Abdominal pain/gallstones Attending Physician: Lui Stone MD History of Present Illness This is a 56-year-old male who presented to [facility] emergency department secondary to abdominal pain for 4 days. Patient says that the pain is located across the top of his abdomen in a bandlike fashion exte nding from the left upper quadrant to the right upper quadrant. He has not had any nausea or vomiting. He does note that he has had issues with constipation having not been able to have a normal bowel movement in approximately 4 days. He does feel as though the caliber of his stool is somewhat less than what it usually is. He does note that his current abdominal pain seems to be worse if he eats and drinks a substantial amount. He has not had any fevers, shakes, or chills. He does note that he has had colonoscopies in the past with the most recent colonoscopy being performed on 02/24/2022. During this procedure the patient was noted to have a redundant colon but the colon prep was poor. No specimens were collected. Due to the redundancy of the colon they were unable to advance the colonoscope beyond of the transverse colon. He denies any prior abdominal surgeries. Since arrival to the hospital the patient has had labs and imaging which independent reviewed. He did have an obstruction series that showed a nonobstructive bowel gas pattern. There is a moderate amount of stool noted in the large bowel on the study. There is no evidence of pneumonia on the chest x- ray portion of the study. CT scan abdomen pelvis showed no acute intra- abdominal findings. The appendix was normal. He did have a distended gallbladder with gallstones but there is no gallbladder wall thickening or pericholecystic edema suggestive of cholecystitis. On the study there was some nonspecific distal esophageal wall thickening. There is no evidence of bowel obstruction. Labs included CBC were white blood cell count was 9.8. Hemoglobin and hematocrit were noted to be normal as was the platelet count. Chemistry profile showed sodium is 131. Potassium, BUN, and creatinine were normal. There is no elevation of patient's bilirubin, transaminases, or alkaline phosphatase. Lipase was normal. Urinalysis was not indicative of infection. A COVID test was negative. At the time of my interview the patient was resting comfortably in bed and he was in no distress. Allergies Allergy/AdvReac Type Severity Reaction Status Date / Time bee venom protein (honey bee) Allergy Severe Swelling Verified 07/21/22 16:55 of Lip/Tongue/Throat gabapentin [From Neurontin] AdvReac Severe Confusion Verified 07/21/22 16:55 Home Medications Medication Instructions Recorded Confirmed Type baclofen 10 mg tablet 10 mg PO TID 12/26/17 07/21/22 History hydrochlorothiazide 50 mg tablet 50 mg PO QAM 12/26/17 07/21/22 History hydrocodone 7.5 mg-acetaminophen 1 tab PO QID PRN Pain 12/26/17 07/21/22 History 325 mg tablet insulin aspart U-100 100 unit/mL 1 dose subcut TID 12/26/17 07/21/22 History (3 mL) subcutaneous pen (Novolog FlexPen U-100 Insulin aspart) insulin detemir U-100 100 unit/mL 70 unit subcut HS 12/26/17 07/21/22 History (3 mL) subcutaneous pen (Levemir FlexTouch U-100 Insulin) lisinopril 40 mg tablet 40 mg PO QAM 12/26/17 07/21/22 History metformin 1,000 mg tablet 1,000 mg PO BID 12/26/17 07/21/22 History omeprazole 20 mg delayed 1 tab PO QAM 12/26/17 07/21/22 History release,disintegrating tablet oxycodone 15 mg tablet,crush 15 mg PO Q12H 12/26/17 07/21/22 History resistant,extended release 12 hr (OxyContin) pregabalin 150 mg capsule (Lyrica) 150 mg PO TID 12/26/17 07/21/22 History tamsulosin 0.4 mg capsule 0.4 mg PO QAM 12/26/17 07/21/22 History timolol 0.25 % eye drops 1 drp OPB QAM 12/26/17 07/21/22 History travoprost 0.004 % eye drops 1 drp OPB PM 12/26/17 07/21/22 History (Travatan Z) aspirin 81 mg tablet,delayed 81 mg PO DAILY 07/21/22 07/21/22 History release Patient History Medical History Anxiety BPH (benign prostatic hyperplasia) Depression Diabetes mellitus type 1 GERD (gastroesophageal reflux disease) Glaucoma Hiatal hernia Hyperlipidemia Hypertension Osteoarthritis Peripheral neuropathy Sleep apnea not currently using CPAP, sleeping in recliner Surgical History Cellulitis of leg RT/LEFT LEG ABLATIONS? 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 Beliefs That Will Affect Care: None Current Living Situation: Spouse Current Living Situation Comment: FRIEND Other Information That Helps Us Care for You: No Feels Safe at Home: Yes Safety Concerns: Feels Safe At This Time Assistive Devices: Glasses Review of Systems Constitutional: no fever and no chills Eyes: no eye pain Ear, Nose, Mouth, Throat: no ear pain Respiratory: no cough and no dyspnea Cardiovascular: no chest pain Gastrointestinal: as per Subjective / HPI Genitourinary: no dysuria Musculoskeletal: no back pain Integumentary: no rash Neurologic: no localized weakness Physical Exam Constitutional: WD/WN, vitals as above Eyes: no conjunctival abnormality ENMT: Ears: no hearing impairment and no external ear abnormality Mouth: no oropharynx abnormality Neck: trachea midline Respiratory: normal respiratory effort; no respiratory distress and no labored breathing Cardiovascular: Rate/Rhythm: regular rate and regular rhythm Gastrointestinal (Abdomen): Abdomen is rotund. It is noted to be soft and nondistended without rigidity. There is no rebound tenderness or guarding. The patient did have some slight tenderness at the time of my exam with palpation of the right upper quadrant. I do not appreciate any masses. Musculoskeletal: No calf tenderness Skin: no rashes Neurologic: moves all extremities Psychiatric: A+Ox3, euthymic affect Results & Data Vital Signs (Past 12 Hours) Vital Signs Temp Pulse Pulse Resp BP BP Pulse Ox 07/21/22 20:00 62 24 152/61 H 94 07/21/22 19:30 66 18 168/63 H 96 07/21/22 19:13 61 22 160/64 H 96 07/21/22 19:01 57 L 07/21/22 18:43 62 21 121/105 H 96 07/21/22 12:07 98 H 20 164/49 H 97 07/21/22 12:03 36.5 C 65 20 191/78 H 96 O2 Del Method 07/21/22 20:00 Room Air 07/21/22 19:30 Room Air 07/21/22 19:13 Room Air 07/21/22 19:01 07/21/22 18:43 Room Air 07/21/22 12:07 Room Air 07/21/22 12:03 Room Air PG Care Time/CCT Total # of Minutes Spent Total Time Spent with Patient: Total time spent is greater than 50% in coordination of care (as documented) at patient's floor/unit and/or counseling patient: Coding Level of Care Code 32920 IN/OBS CONSULT LVL 5,80M Diagnoses Cholelithiasis K80.20 Abdominal pain R10.9
[2022-07-21] MEDS: INSULIN ASPART PER UNIT CHARGE SC SCH (22:33)
[2022-07-22] MEDS: INSULIN ASPART PER UNIT CHARGE SC SCH ×5 (00:14→12:59)
--- NOTE | 2022-07-22 06:18 | Electrocardiogram Report ---
Test Reason : Blood Pressure : / mmHG Vent. Rate : 056 BPM Atrial Rate : 056 BPM P-R Int : 144 ms QRS Dur : 136 ms QT Int : 438 ms P-R-T Axes : 059 064 056 degrees QTc Int : 422 ms Poor data quality, interpretation may be adversely affected Sinus bradycardia Right bundle branch block Abnormal ECG When compared with ECG of 07-NOV-2011 17:53, Right bundle branch block is now Present Confirmed by Shon Canales ([id number]) on 07/22/2022 6:17:38 AM Referred By: Confirmed By:Shon Canales
[2022-07-22] MEDS ORDERED: ACETAMINOPHEN 1,000 MG/100 ML VIAL IV PRN (06:37)
[2022-07-22] MEDS ORDERED: SINCALIDE IV ONE (08:15)
[2022-07-22] MEDS ORDERED: SODIUM CHLORIDE 0.9% IV ONE (08:15)
[2022-07-22] MEDS ORDERED: HYDROmorphone INJ 0.5 MG/0.5 ML SYR IV PRN (08:23)
[2022-07-22] MEDS ORDERED: HYDROmorphone INJ 1 MG/ML SYRINGE IV PRN (08:23)
--- NOTE | 2022-07-22 08:28 | Nuclear Medicine Report ---
NUCLEAR MEDICINE HEPATOBILIARY SCAN HISTORY: Right upper quadrant pain. COMPARISON: Abdomen and pelvis CT 07/21/2022. TECHNIQUE: Immediately following the intravenous administration of 5.2 mCi Tc-99m Choletec, dynamic a nterior abdominal imaging was performed. FINDINGS: Uniform hepatic tracer accumulation is shown. Prompt intrahepatic biliary excretion is seen. The gall bladder and common bile duct are visualized by 12 minutes. The patient was unable to tolerate the exa m passed 12 minutes. Therefore, the small bowel was not identified during the examination. However, b y definition, there is no evidence for cystic duct obstruction. IMPRESSION: The gallbladder and common bile duct are visualized by 12 minutes. The patient was unable to tolerate the exam passed 12 minutes. Therefore, the small bowel was not identified during the examination. Ho wever, by definition, there is no evidence for cystic duct obstruction. ACT 112: Negative or not required by law. Electronically signed by: Kyle Carmen M.D. 07/22/2022 8:26 AM
--- NOTE | 2022-07-22 08:34 | Hospitalist Progress Note ---
Date of Service July 22, 2022 Assessment & Plan (1) Abdominal pain: Plan: Cholelithiasis, acute high risk for OR 07/22/22 - Moderate stool retention,? Constipation in the setting of chronic opioid use zosyn started for coverage of intra abdominal issues Type II DM chronic stable Continue basal bolus insulin, uses 70 units insulin at bedtime Goal BSG [id number] N.p.o. 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 Did discuss personally with PCP his admission and ultrasound findings. Okay to use home medications if tolerated, or reasonable IV conversions while inpatient and as long as it is appropriately documented with cause will not violate patient's contract. Home dosing includes Lyrica 150 mg p.o. 3 times daily, hydrocodone 7.5 mgacetaminophen 4 times daily as needed (prescribed with 3 times daily average use), and oxycodone extended release 15 mg every 12 hours. Also uses baclofen 10 mg p.o. 3 times daily, but generally tries not to use this as it causes sedation. Home meds continued Hypertension chronic and stable Hold SONYA pending surgical evaluation bp is low will hold oral medicines DVT prophylaxis: SCDs Diet: N.p.o. (2) Diabetes mellitus type 1: Admission and Anticipated Discharge Date Admission Date: July 21, 2022 Results & Data Results & Data Vital Signs (Past 12 Hours) Vital Signs Temp Pulse Resp BP BP Pulse Ox O2 Del Method 07/22/22 07:06 97.7 F 54 L 16 112/73 95 Room Air 07/21/22 21:25 Room Air 07/21/22 21:25 97.5 F L 59 L 18 151/71 H 93 Room Air 07/22/22 00:01 98.2 F 115 H 158/83 H 94 Room Air PG Care Time/CCT Total # of Minutes Spent Total Time Spent with Patient: Total time spent is greater than 50% in coordination of care (as documented) at patient's floor/unit and/or counseling patient: Coding Diagnoses Abdominal pain R10.9 Diabetes mellitus type 1 E10.9
[2022-07-22] MEDS ORDERED: hydroCHLOROthiazide 25 MG TAB PO SCH (09:00)
[2022-07-22] MEDS ORDERED: TIMOLOL MALEATE 0.25% OP SOLN 5 ML BTL OP SCH (09:00)
[2022-07-22] MEDS ORDERED: PIPERACILLIN/TAZOBACTAM 4.5 GM in DEXTROSE 5% 100 ML IV ONE (09:00)
[2022-07-22] MEDS ORDERED: DOCUSATE SODIUM/SENNA 50/8.6MG TAB PO SCH (09:00)
[2022-07-22] MEDS ORDERED: NICOTINE 21 MG/24 HR TDSY TD SCH (09:00)
[2022-07-22] MEDS ORDERED: lisinopril 40 MG TAB PO SCH (09:00)
[2022-07-22] MEDS ORDERED: TAMSULOSIN HCL 0.4 MG CAP PO SCH (09:00)
[2022-07-22 10:38] LABS: Estimated Average Glucose 140 mg/dl; Hemoglobin A1C 6.5 % (4.5-5.6)
--- NOTE | 2022-07-22 11:02 | Surgery Progress Note ---
Date of Service July 22, 2022 Assessment & Plan (1) Cholelithiasis: Plan: HIDA images and results were personally viewed by myself, no cystic duct obstruction I think his abdominal pain is more related to his constipation issues than his gallstones We will suggest an aggressive bowel regimen to help with this He can follow-up with me as an outpatient to discuss further management of his gallstones Surgery will sign off at this time, please call with any questions or concerns (2) Constipation: Admission and Anticipated Discharge Date Admission Date: July 21, 2022 Subjective Patient seen and examined. Still with generalized upper abdominal pain. Afebrile. Denies any nausea or vomiting. Still has not had a bowel movement. Review of Systems Constitutional: no fever and no chills Physical Exam Constitutional: WD/WN, vitals as above Gastrointestinal (Abdomen): Inspection/Auscultation: abdomen normal to inspection; abdomen not distended Percussion/Palpation: + abdomen tender (Mild left upper quadrant and right upper quadrant) and abdomen soft; no guarding and abdomen not rigid Negative Bustos's Results & Data Vital Signs (Past 12 Hours) Vital Signs Temp Pulse Resp BP BP Pulse Ox O2 Del Method 07/22/22 08:39 Room Air 07/22/22 07:06 36.5 C 54 L 16 112/73 95 Room Air 07/22/22 00:01 36.8 C 115 H 158/83 H 94 Room Air PG Care Time/CCT Total # of Minutes Spent Total Time Spent with Patient: Total time spent is greater than 50% in coordination of care (as documented) at patient's floor/unit and/or counseling patient: Coding Level of Care Code 01711 SUB INP/OBS CARE 05/18MIN Diagnoses Cholelithiasis K80.20 Constipation K59.00
[2022-07-22] MEDS: BACLOFEN 10 MG TAB PO SCH ×2 (12:03→14:51)
[2022-07-22] MEDS: oxyCODONE HCL 15 MG TABCR (OxyCONTIN) PO SCH (12:08)
[2022-07-22] MEDS: PREGABALIN 150 MG CAP PO SCH (12:08)
[2022-07-22] MEDS ORDERED: PIPERACILLIN/TAZOBACTAM 4.5 GM in DEXTROSE 5% 100 ML IV SCH (14:00)
[2022-07-22] MEDS: POLYETHYLENE (MIRALAX) 17 GM PACK PO SCH (14:49)
--- NOTE | 2022-07-22 15:14 | Pharmacy Report ---
Pharmacy Glycemic Short Note 2 - Date of Service July 22, 2022 - Glycemic Short BSG Results (Last 24 hours): 07/21/22 07/22/22 07/22/22 20:59 00:05 04:09 POC Glucose 181 H 191 H 191 H 07/22/22 07/22/22 07/22/22 04:12 06:10 12:15 POC Glucose 199 H 182 H 208 H 07/22/22 14:27 POC Glucose 229 H OUTPATIENT ANTIDIABETIC REGIMEN: * Aspart 60-55-55 units TIDM, metformin, Levemir 70 units HS ASSESSMENT: * 56 year old being worked up for abdominal pain. Pharmacy consulted for glycemic management. Was NPO this AM, now started on clear - eating well at lunch * Patient received 33 units of insulin yesterday, of which 22 units were basal for NPO status. BSGs in 200s today, will resume basal closer to home requirement since diet now starting * Will add overnight checks to have better idea of insulin needs since patient on very large amounts of insulin at home PLAN FOR INPATIENT GLYCEMIC CONTROL: * Hold outpatient oral diabetes medications * Basal insulin * Lantus 50 units x 1 now * Bolus insulin * NovoLog per scale ACHS or Q6hrs while NPO * Goal Range: Low 110 mg/dL - High 140 mg/dL * Correction Factor: 10 mg/dL/unit * Nutritional / Prandial insulin per carb ratio of 1 unit per 3 grams CHO consumed
[2022-07-22] MEDS ORDERED: LANTUS PER UNIT CHARGE SQ ONE (15:15)
[2022-07-22] MEDS ORDERED: INSULIN ASPART PER UNIT CHARGE SC SCH (16:30)
--- NOTE | 2022-07-22 19:13 | Discharge Summary ---
Date of Service July 22, 2022 Admission HPI Per Admitting Provider Andrea is a 56-year-old male with a past medical history of type II DM, chronic low back pain with postlaminectomy syndrome, obesity, GERD, and hypertension who presents to the ER with periumbilical and right upper quadrant pain worse after eating and which radiates to his chest. Appetite has been decreased due to pain. 2-3 days of RUQ abdominal pain worsened with meals. Appetite decreased. No vomiting. Is constipated at baseline, has had hard stools but no francis stools or diarrhea. No history of gallbladder problems to his knowledge. He is tender in his right upper quadrant. Takes multiple narcotics for chronic pain due to postlaminectomy syndrome. Diabetes has been well controlled, no diabetic gastroparesis to his knowledge. Blood sugars are generally 80s to 130s with no recent change, did take his medications this morning.No heart problems, no hx HI. His appetite has been greatly decreased due to his pain, has been tolerating some liquids and half a bowl of oatmeal otherwise generally has not been eating much due to worsening of his pain. He is a smoker. Does not use alcohol or medical marijuana. Does not use recreational drugs or substances that would interact with anesthesia. Medical History: Reviewed Medications: Reviewed Surgical History: Reviewed Family history: Reviewed Allergies: Reviewed Social History:Tobacco use 1.5ppd. No etoh use. No medical marijuana Code Status: Full code Principal Diagnosis abdominal pain secondary to constipation failed back syndrome Discharge Exam Patient is chronically ill and limited however he is in no particular distress his abdomen has improved is soft and nontender. Discharge Data Allergies Allergy/AdvReac Type Severity Reaction Status Date / Time bee venom protein (honey bee) Allergy Severe Swelling Verified 07/21/22 16:55 of Lip/Tongue/Throat gabapentin [From Neurontin] AdvReac Severe Confusion Verified 07/21/22 16:55 Consultations 07/21/22 17:52 ED Decision to Admit Stat Procedures Performed Operation Date: 07/22/22 10:55 <No data on this case meets the specified criteria> Ordered Studies 07/21/22 14:58 CT Abd and Pelvis [CT abd pelvis IV con only] Stat Hospital Course (1) Abdominal pain: Cholelithiasis, ruled out by HIDA scan origins of abdominal pain secondary to constipation Constipation secondary to chronic opiate use immobility and diet - Moderate stool retention,? Constipation in the setting of chronic opioid use Patient and educated at the bedside for 25 minutes regarding good habits to promote bowel movements daily Type II DM chronic stable Resume home insulin Levemir metformin Chronic back pain, postlaminectomy syndrome, chronic stable S/p laminectomy with chronic pain follows with a pain clinic and his PCP chronic substance abuse issues Patient has a strict narcotic prescribing agreement in place, very concerned about violating this with inpatient medications. Did discuss personally with PCP his admission and ultrasound findings. Okay to use home medications if tolerated, or reasonable IV conversions while inpatient and as long as it is appropriately documented with cause will not violate patient's contract. Home dosing includes Lyrica 150 mg p.o. 3 times daily, hydrocodone 7.5 mgacetaminophen 4 times daily as needed (prescribed with 3 times daily average use), and oxycodone extended release 15 mg every 12 hours. Also uses baclofen 10 mg p.o. 3 times daily, but generally tries not to use this as it causes sedation. Home meds continued Hypertension chronic and stable Hold SONYA pending surgical evaluation bp is low will hold oral medicines (2) Diabetes mellitus type 1: Total Time Total Time Spent Total Time Spent (In Minutes): It required greater than 30 minutes to prepare this patient for discharge Discharge Plan Discharge Items Patient Disposition: Home - Self-Care Reason For Visit: ABD PAIN, CONSTIPATION Discharge Diagnosis: abdominal pain constipation failed back syndrome Activity: Resume your previous activity Non-emergency contact: Primary Care Provider Call non-emergency contact if: your symptoms worsen Follow-up/Referrals: Fina Woodard CRNP [Primary Care Provider] - 07/27/22 11:30 am (WITH SHANELL QUEZADA) Diet: Regular Addtl Attending Provider Instructions: Drink plenty of fluids, enough so that your urine is light yellow or clear like water. If you have kidney, heart, or liver disease and have to limit fluids, talk with your doctor before you increase the amount of fluids you drink. Include high-fiber foods in your diet each day. These include fruits, vegetables, beans, and whole grains. Get at least 30 minutes of exercise on most days of the week. Walking is a good choice. You also may want to do other activities, such as running, swimming, cycling, or playing tennis or team sports. Take a fiber supplement, such as Citrucel or Metamucil, every day. Read and follow all instructions on the label. Schedule time each day for a bowel movement. A daily routine may help. Take your time having your bowel movement. Support your feet with a small step stool when you sit on the toilet. This helps flex your hips and places your pelvis in a squatting position. Your doctor may recommend an misl-tmg-vdexuhl laxative to relieve your constipation. Examples are Milk of Magnesia and MiraLax. Read and follow all instructions on the Pending Studies at Discharge: No Stand-Alone Forms: My [facility] [email or web address], Smoking Cessation Medications and DC Order Prescriptions: New sennosides-docusate sodium [Senokot-S] 8.6-50 mg Tablet 2 tab PO BID Qty: 60 0RF Continued hydrochlorothiazide 50 mg Tablet 50 mg PO QAM travoprost [Travatan Z] 0.004 % Drops 1 drp OPB PM baclofen 10 mg Tablet 10 mg PO TID hydrocodone-acetaminophen 7.5-325 mg Tablet 1 tab PO QID PRN (Reason: Pain) timolol 0.25 % Drops 1 drp OPB QAM lisinopril 40 mg Tablet 40 mg PO QAM insulin aspart U-100 [Novolog FlexPen U-100 Insulin] 100 unit/mL Insulin Pen 1 dose subcut TID Rx Instructions: PER SLIDING SCALE, PER PT "USUALLY TAKE 60 UNITS WITH BREAKFAST, 55 UNITS WITH LUNCH & DINNER". pregabalin [Lyrica] 150 mg Capsule 150 mg PO TID Levemir FlexTouch U-100 Insuln 100 unit/mL (3 mL) Insulin Pen 70 unit subcut HS oxycodone [OxyContin] 15 mg Tablet,Oral Only,Ext.Rel.12 Hr 15 mg PO Q12H omeprazole 20 mg Tablet,Disintegrat, Delay Rel 1 tab PO QAM metformin 1,000 mg Tablet 1,000 mg PO BID tamsulosin 0.4 mg Capsule 0.4 mg PO QAM aspirin 81 mg Tablet,Delayed Release (Dr/Ec) 81 mg PO DAILY Discharge Orders: Discharge Order (Routine); Ordered 07/22/22 Ordered By: Refugio Brewer/Other Patient Handouts: A1C, Treating Constipation Admission Data Admit Date/Time: 07/21/22 18:26 Attending Provider: Refugio Og Admit Provider: Lui Stone Primary Care Provider: Fina Woodard Other Providers: Lui Stone Other Interventions: Discharge Summary Assessment (RN) Last Done: 07/22/22 16:28 Coding Level of Care Code 62852 INP/OBS DISCH >30 MIN Diagnoses Abdominal pain R10.9 Diabetes mellitus type 1 E10.9
[2022-07-23] MEDS ORDERED: INSULIN ASPART PER UNIT CHARGE SC SCH
== END 2022-07-22 17:30 | disposition home or self-care (01) ==
LOC: ED 11:57 → EDINP 11:57 → SUATTDRO 18:26 → 3N 20:49

== ENCOUNTER 2023-11-30 09:35 | Observation (INO) ==
--- NOTE | 2023-11-30 10:18 | Emergency Department Note ---
ED Provider Note History of Present Illness Chief Complaint: Neck Injury/Pain Stated Complaint: NECK/SHOULDER PAIN Time Seen by Provider: 11/30/23 09:52 Source: patient Mode of arrival: ambulatory Limitations: no limitations Patient is a 58-year-old male who presents to the emergency department with complaints of left-sided neck pain and left shoulder pain that radiates to his upper chest area. Patient states that he woke up one morning with this pain and has been dealing with it for quite some time, however he attempted to lift something heavy a couple days ago which made the pain worse. Patient states that pain is reproducible and worsens with certain movements. Patient's pain does however radiate down into his chest and the backside of his shoulder. Patient has a history of chronic back pain and follows with pain management for that pain. Patient states that he has been taking his regular doses of oxycodone, baclofen, and hydrocodone with minimal relief of this pain. Home Medications Medication Instructions Recorded Confirmed Type baclofen 10 mg tablet 10 mg PO TID 12/26/17 11/30/23 History hydrochlorothiazide 50 mg tablet 50 mg PO QAM 12/26/17 11/30/23 History insulin aspart U-100 100 unit/mL 1 dose subcut TIDWMEAL 12/26/17 11/30/23 History (3 mL) subcutaneous pen (Novolog FlexPen U-100 Insulin aspart) insulin detemir U-100 100 unit/mL 70 unit subcut HS 12/26/17 11/30/23 History (3 mL) subcutaneous pen (Levemir FlexTouch U-100 Insulin) metformin 1,000 mg tablet 1,000 mg PO BID 12/26/17 11/30/23 History oxycodone 15 mg tablet,crush 15 mg PO Q12H 12/26/17 11/30/23 History resistant,extended release 12 hr (OxyContin) pregabalin 150 mg capsule (Lyrica) 150 mg PO TID 12/26/17 11/30/23 History tamsulosin 0.4 mg capsule 0.4 mg PO QAM 12/26/17 11/30/23 History timolol 0.25 % eye drops 1 drp OPB QAM 12/26/17 11/30/23 History travoprost 0.004 % eye drops 1 drp OPB PM 12/26/17 11/30/23 History (Travatan Z) aspirin 81 mg tablet,delayed 81 mg PO DAILY 07/21/22 11/30/23 History release sennosides 8.6 mg-docusate sodium 2 tab PO BID #60 tabs 07/22/22 11/30/23 Rx 50 mg tablet (Senokot-S) docusate sodium 100 mg tablet 200 mg PO BID 10/24/22 11/30/23 History gemfibrozil 600 mg tablet 600 mg PO BID 10/24/22 11/30/23 History metoprolol tartrate 25 mg tablet 25 mg PO DAILY 10/24/22 11/30/23 History omeprazole 40 mg capsule,delayed 40 mg PO QAM 10/24/22 11/30/23 History release Saccharomyces boulardii 250 mg 250 mg PO BID #20 caps 07/04/23 11/30/23 Rx capsule (Florastor) hydrocodone 7.5 mg-acetaminophen 1 tab PO TID PRN Pain 07/04/23 11/30/23 History 325 mg tablet Allergies Allergy/AdvReac Type Severity Reaction Status Date / Time bee venom protein (honey bee) Allergy Severe Swelling Verified 11/30/23 12:12 of Lip/Tongue/Throat gabapentin [From Neurontin] AdvReac Severe Confusion Verified 11/30/23 12:12 Past Med/Surg History Problem List (Updated 11/30/23 @ 18:40 by MENDEZ Lemos) Bradycardia (Acute) Sinus bradycardia Tobacco abuse Sinus pause Episode of syncope Cervical radicular pain Constipation Abdominal pain (Acute) Cholelithiasis (Acute) Hypertension Hyperlipidemia Sleep apnea not currently using CPAP, sleeping in recliner Anxiety BPH (benign prostatic hyperplasia) Abdominal pain Diabetes mellitus type 1 Encounter for pre-operative examination Encounter for pre-operative examination Colon cancer screening Medical History Peripheral neuropathy Osteoarthritis Hiatal hernia GERD (gastroesophageal reflux disease) Glaucoma Depression Surgical History Hx of colonoscopy Cellulitis of leg RT/LEFT LEG ABLATIONS? History of anesthesia reaction CYST REMOVAL WAS TOLD "ALMOST LOST ON TABLE BY NURSE">UNSURE OF DETAILS History of carpal tunnel release LEFT Cyst REMOVAL Fusion of spine LUMBAR; L3-L5 History of tooth extraction Family History Mother Family history of diabetes mellitus Social History Smoking Status: Current every day smoker Tobacco Type: Cigarettes Cigarettes Per Day: 1 1/2 pack per day; Second Hand Exposure: No; Do You Dip or Chew Tobacco: No; Hx Alcohol Use: No Hx Substance Use: No Preferred Language: Cantonese Bulgarian Communication Ability: Effective Ditcher Operator Required: No Beliefs That Will Affect Care: None Current Living Situation: Significant Other Current Living Situation Comment: FRIEND Feels Safe at Home: Yes Assistive Devices: Cane Physical Exam Vital Signs Vital Signs - 24 hr 11/30/23 09:41 11/30/23 10:01 11/30/23 10:12 Temperature 36 C L 36.9 C Temperature Source Temporal Artery Scan Oral Pulse Rate 46 L 46 L Pulse Rate [Apical] 48 L Pulse Rate from SpO2 Sensor Pulse Rhythm Pulse Rhythm [Apical] Regular Pulse Strength [Apical] Normal Respiratory Rate 20 20 Respiratory Effort / Characteristics Non-Labored Non-Labored Spontaneous Respiratory Depth Normal Normal Respiratory Pattern Regular Blood Pressure 130/67 Blood Pressure [Right Arm] 184/100 H Blood Pressure Mean 88 Blood Pressure Mean [Right Arm] 128 Blood Pressure Position Sitting Blood Pressure Position [Right Arm] Semi-fowlers Pulse Oximetry 95 96 Oxygen Delivery Method Room Air Room Air Sepsis Recent Fever Within 48 Hours No Sepsis New/Unexplained Change in Mental Status No Sepsis Action Taken by Nursing No Action Required 11/30/23 10:14 11/30/23 10:50 11/30/23 10:50 Temperature Temperature Source Pulse Rate 49 L 0 L 64 Pulse Rate [Apical] Pulse Rate from SpO2 Sensor Pulse Rhythm Regular Pulse Rhythm [Apical] Pulse Strength [Apical] Respiratory Rate 20 Respiratory Effort / Characteristics Respiratory Depth Respiratory Pattern Blood Pressure Blood Pressure [Right Arm] Blood Pressure Mean Blood Pressure Mean [Right Arm] Blood Pressure Position Blood Pressure Position [Right Arm] Pulse Oximetry 95 Oxygen Delivery Method Room Air Sepsis Recent Fever Within 48 Hours Sepsis New/Unexplained Change in Mental Status Sepsis Action Taken by Nursing 11/30/23 11:00 11/30/23 11:00 11/30/23 11:16 Temperature Temperature Source Pulse Rate 46 L Pulse Rate [Apical] Pulse Rate from SpO2 Sensor 46 L Pulse Rhythm Pulse Rhythm [Apical] Pulse Strength [Apical] Respiratory Rate 21 Respiratory Effort / Characteristics Respiratory Depth Respiratory Pattern Blood Pressure 210/86 H 172/83 H Blood Pressure [Right Arm] Blood Pressure Mean 123 106 Blood Pressure Mean [Right Arm] Blood Pressure Position Blood Pressure Position [Right Arm] Pulse Oximetry 96 Oxygen Delivery Method Sepsis Recent Fever Within 48 Hours Sepsis New/Unexplained Change in Mental Status Sepsis Action Taken by Nursing 11/30/23 11:18 11/30/23 11:21 11/30/23 11:30 Temperature Temperature Source Pulse Rate 45 L Pulse Rate [Apical] Pulse Rate from SpO2 Sensor 45 L Pulse Rhythm Pulse Rhythm [Apical] Pulse Strength [Apical] Respiratory Rate 17 Respiratory Effort / Characteristics Respiratory Depth Respiratory Pattern Blood Pressure 159/69 H 171/79 H Blood Pressure [Right Arm] Blood Pressure Mean 109 135 Blood Pressure Mean [Right Arm] Blood Pressure Position Blood Pressure Position [Right Arm] Pulse Oximetry 96 Oxygen Delivery Method Sepsis Recent Fever Within 48 Hours Sepsis New/Unexplained Change in Mental Status Sepsis Action Taken by Nursing VITAL SIGNS - Vital signs and nursing notes were reviewed. GENERAL -58-year-old male appearing his stated age who is in no acute distress. Communicates well with provider and answers questions appropriately. HEAD - Normocephalic, Atraumatic. EYES - PERRL with EOMI bilaterally. EARS - No deformities of external structures noted on gross examination bilaterally. No pain elicited with palpation of the tragus bilaterally. External auditory canals without discharge or otorrhea. NOSE - Midline and without cyanosis. No epistaxis or purulent drainage noted. MOUTH/OROPHARYNX - Without perioral cyanosis. NECK - Neck with limited ROM secondary to patient discomfort. No cervical spinous process tenderness to palpation. Mildly increasing paraspinal muscle tenderness to palpation. No lymphadenopathy noted. Increased pain through range of motion appreciated on the left side. EXTREMITIES -minimally decreased strength appreciated in the left arm, due to patient's discomfort and left shoulder. +3/5 radial pulses palpated throughout. FROM with no tremors, fasciculations, or clonus noted on PROM throughout. NEUROLOGIC - Sensory intact to light and sharp touch throughout. Patient able to perform rapid alternating movements appropriately. PSYCH - A&Ox3 and cooperates fully with examiner. Pt is very pleasant and interacts well with examiner. Course Course Patient is a 58-year-old male who presents to the emergency department with complaints of left shoulder pain that radiates into his chest and left neck. Patient denies any injury that caused symptoms. The patient was evaluated by myself and findings were noted in the physical exam above. Labs were drawn and IV access was obtained. An EKG was also obtained. Imaging studies were performed and read by radiology as above. The patient was medicated with Flexeril and Toradol. The patient was reassessed multiple times during their stay in the emergency department and remained in stable condition. Patient's lab work was unremarkable and EKG was comparable to previous EKGs that he has had in the past. Chest x-ray showed no acute findings. While in the emergency department the patient did have a bradycardic episode where he bradycardia down from a heart rate in the high 40s to a heart rate in the low 30s. During that episode the patient went unresponsive for short period of time and had a long pause on the cardiac rn. Patient had a pause on the cardiac rn that lasted approximately 10 to 12 seconds. Patient was having cardiac morphology changes while in the department. Patient's troponin level was 11.1. Because of those things the patient was referred to the hospitalist group for inpatient admission for further evaluation. I spoke to Dr. Malik who agreed with that plan and admitted the patient inpatient under the [facility] hospitalist group. Administered Medications Acetaminophen (Acetaminophen 325 Mg Tab) 650 mg PO Q6H BEATRIZ Stop: 12/30/23 15:59 Last Admin: 11/30/23 16:30 Dose: 650 mg Documented By: ALYSSA Heparin Sodium (Porcine) (Heparin Sod 5,000 Unit/0.5 Ml Vial) 5,000 units SQ Q8 BEATRIZ Stop: 12/30/23 13:59 Last Admin: 11/30/23 15:03 Dose: 5,000 units Documented By: NADER Insulin Aspart (Insulin Aspart Per Unit Charge) 0 units SC ACHS BEATRIZ Stop: 12/30/23 12:59 Last Admin: 11/30/23 18:29 Dose: 4 units Documented By: NADER Co-signed By: FAIZA Admin: 11/30/23 13:20 Dose: Not Given Documented By: NADER Insulin Glargine (Lantus Per Unit Charge) 30 units SQ BID BEATRIZ Stop: 12/30/23 12:59 Last Admin: 11/30/23 13:55 Dose: Not Given Documented By: NADER Pregabalin (Pregabalin 150 Mg Cap) 150 mg PO TID BEATRIZ Stop: 12/30/23 13:59 Last Admin: 11/30/23 13:55 Dose: 150 mg Documented By: OO Discontinued Medications Acetaminophen (Acetaminophen 500 Mg Tab) 1,000 mg PO NOW STA Stop: 11/30/23 12:15 Last Admin: 11/30/23 13:53 Dose: 1,000 mg Documented By: OO Cyclobenzaprine HCl (Cyclobenzaprine Hcl 10 Mg Tab) 10 mg PO NOW STA Stop: 11/30/23 10:15 Last Admin: 11/30/23 10:32 Dose: 10 mg Documented By: RAFA Ioversol (Optiray 320 125ml) 119 ml IV ONCE ONE Stop: 11/30/23 11:11 Last Admin: 11/30/23 11:08 Dose: 119 ml Documented By: JASWINDER Ketorolac Tromethamine (Ketorolac Tromethamine 15 Mg/Ml Vial) 15 mg IV NOW STA Stop: 11/30/23 10:15 Last Admin: 11/30/23 10:32 Dose: 15 mg Documented By: RAFA Lidocaine (Lidocaine 5% 1 Patch) 1 patch TD NOW STA Stop: 11/30/23 11:41 Last Admin: 11/30/23 11:52 Dose: 1 patch Documented By: BENJAMINK Oxycodone HCl (Oxycodone Hcl 15 Mg Tabcr (Oxycontin)) 15 mg PO NOW STA Stop: 11/30/23 17:27 Last Admin: 11/30/23 18:29 Dose: 15 mg Documented By: NADER Perflutren Lipid Microsphere (Perflutren Lipid Microsphere (Definity)) 2 ml IV ONCE ONE Stop: 11/30/23 14:54 Last Admin: 11/30/23 14:54 Dose: 2 ml Documented By: ALYSSA Medical Decision Making Differential Diagnosis Differential diagnosis includes acute coronary syndrome, pulmonary embolism, pneumothorax, pericarditis, myocarditis, endocarditis, anxiety, musculoskeletal pain, GERD, costochondritis, pneumonia, among others. Medical Records Attestation: I reviewed the patient's medical records. Home Medications was personally reviewed by me Laboratory Data 11/30/23 10:11 11/30/23 10:11 Lab Results 11/30/23 11/30/23 Range/Units 10:11 11:20 WBC 6.90 (4.8-10.8) K/ul RBC 5.25 (4.70-6.10) M/uL Hgb 15.8 (14.0-18.0) g/dl Hct 47.6 (42.0-52.0) % MCV 90.7 (80.0-100.0) fL MCH 30.1 (25.0-34.0) pg MCHC 33.2 (32.0-36.0) g/dL RDW Std Deviation 48.2 H (36.4-46.3) fL RDW Coeff of [place] 14.6 H (11.5-14.5) % Plt Count 209 (130-400) K/uL MPV 10.7 (9.4-12.4) fL Immature Gran % (Auto) 0.4 % Neut % (Auto) 71.5 % Lymph % (Auto) 18.4 % [place] % (Auto) 6.8 % Eos % (Auto) 2.5 % Baso % (Auto) 0.4 % Neut # (Auto) 4.93 (1.40-6.50) K/uL Lymph # (Auto) 1.27 (1.20-3.40) K/uL [place] # (Auto) 0.47 (0.11-0.59) K/uL Eos # (Auto) 0.17 (0.00-0.50) K/uL Baso # (Auto) 0.03 (0.00-0.20) K/uL Immature Gran # (Auto) 0.03 (0.01-0.20) K/uL D-Dimer 400 (0-500) ug/L FEU Sodium 137 (136-145) mmol/L Potassium 4.1 (3.5-5.1) mmol/L Chloride 104 (98-107) mmol/L Carbon Dioxide 25 (21-32) mmol/L Anion Gap 8 (3-11) BUN 24 H (6-23) mg/dl Creatinine 0.97 (0.6-1.4) mg/dl Est Cr Clr Drug Dosing 146.8 ml/min Est GFR ( Amer) 100.7 ml/min Est GFR (Non-Af Amer) 86.9 ml/min BUN/Creatinine Ratio 24.7 H (10-20) Glucose 281 H (70-99(Fasting)) mg/dl Calcium 9.5 (8.6-10.3) mg/dl Magnesium 2.0 (1.7-2.4) mg/dl Total Bilirubin 0.5 (0.2-1.0) mg/dl AST 16 (13-39) U/L ALT 14 (7-52) U/L Alkaline Phosphatase 63 (34-104) U/L Troponin I High Sens 11.1 9.6 (0-20) pg/ml Total Protein 7.4 (6.0-8.3) gm/dl Albumin 4.4 (3.4-5.0) gm/dl Globulin 3.0 (2.5-4.0) gm/dl Albumin/Globulin Ratio 1.5 (0.9-2) TSH 0.757 (0.300-4.500) uIu/ml Anaplasma Smear See Comment Babesia Smear See Comment Lyme Disease Screen Negative (Negative) Imaging Data Radiologist's Impression: Chest X-Ray 11/30/23 10:09 SINGLE VIEW CHEST CLINICAL HISTORY: Atypical chest pain. Shoulder pain. FINDINGS: An AP, portable, upright chest radiograph is compared to chest x-ray and chest CT dated 01/23/2023. The heart is enlarged. There is pulmonary vascular congestion. Atelectasis is noted at the lung bases. The lungs and pleural spaces are otherwise clear. No pneumothorax is seen. The bony thorax is grossly intact. IMPRESSION: Cardiomegaly with pulmonary vascular congestion. ACT 112: Negative or not required by law. Electronically signed by: Lazarus Montes M.D. 11/30/2023 11:55 AM Shoulder X-Ray 11/30/23 10:09 XR shoulder LT min 2V routine CLINICAL HISTORY: Left shoulder pain. COMPARISON: None FINDINGS: Alignment of the left shoulder is anatomic. There is no acute fracture. There are no osseous lesions. There is moderate joint space narrowing and osteophytosis of the acromioclavicular joint. There is mild glenohumeral joint osteophytosis. IMPRESSION: 1. No fracture or dislocation within the left shoulder. 2. Moderate left AC joint osteoarthritis. Mild left glenohumeral joint osteoarthritis. ACT 112: Negative or not required by law. Electronically signed by: John Menendez M.D. 11/30/2023 1:16 PM Soft Tissue Neck CT 11/30/23 10:19 CT soft tissue neck w con CLINICAL HISTORY: left side neck pain Technique: Axial CT images of the soft tissues of the neck were obtained following intravenous administration of 100 cc of Omnipaque 300. Automated dose lowering techniques and/or adjustment according to patient size were utilized for this exam. Comparison: None available at the time of this dictation. Findings: The oropharynx, hypopharynx, larynx, and trachea are patent. No enlarged lymph nodes are seen. The parotid glands, submandibular glands, and thyroid gland are unremarkable. Imaged portions of the brain parenchyma are unremarkable. The paranasal sinuses and mastoid air cells are normal in appearance. Impression: No acute abnormality is seen. ACT 112: Negative or not required by law. Electronically signed by: Edwin Mathis M.D. 11/30/2023 11:34 AM [facility] Narrative Patient is a 58-year-old male who presents to the emergency department with complaints of left shoulder pain that radiates into his chest and left neck. Patient denies any injury that caused symptoms. The patient was evaluated by myself and findings were noted in the physical exam above. Labs were drawn and IV access was obtained. An EKG was also obtained. Imaging studies were performed and read by radiology as above. The patient was medicated with Flexeril and Toradol. The patient was reassessed multiple times during their stay in the emergency department and remained in stable condition. Patient's lab work was unremarkable and EKG was comparable to previous EKGs that he has had in the past. Chest x-ray showed no acute findings. While in the emergency department the patient did have a bradycardic episode where he bradycardia down from a heart rate in the high 40s to a heart rate in the low 30s. During that episode the patient went unresponsive for short period of time and had a long pause on the cardiac rn. Patient had a pause on the cardiac rn that lasted approximately 10 to 12 seconds. Patient was having cardiac morphology changes while in the department. Patient's troponin level was 11.1. Because of those things the patient was referred to the hospitalist group for inpatient admission for further evaluation. I spoke to Dr. Malik who agreed with that plan and admitted the patient inpatient under the [facility] hospitalist group. Impression Bradycardia Discharge Plan Visit Data Chief Complaint: Neck Injury/Pain Stated Complaint: NECK/SHOULDER PAIN ED Provider: Daija Dowling ED Midlevel Provider: Daniela Avendaño Discharge Problem: Bradycardia Patient Disposition: Admitted As Inpatient Discharge Instructions Interventions: ED Discharge Assessment Last Done: 11/30/23 12:48
[2023-11-30 10:25] LABS: Basophils # (auto) 0.03 K/uL (0.00-0.20); Basophils % (auto) 0.4 %; Eosinophils # (auto) 0.17 K/uL (0.00-0.50); Eosinophils % (auto) 2.5 %; Hematocrit (blood only) 47.6 % (42.0-52.0); Hemoglobin 15.8 g/dl (14.0-18.0); Immature Granulocytes # (auto) 0.03 K/uL (0.01-0.20); Immature Granulocytes % (auto) 0.4 %; Lymphocytes # (auto) 1.27 K/uL (1.20-3.40); Lymphocytes % (auto) 18.4 %; Mean Corpuscular Hemoglobin 30.1 pg (25.0-34.0); Mean Corpuscular Hgb Conc 33.2 g/dL (32.0-36.0); Mean Corpuscular Volume 90.7 fL (80.0-100.0); Mean Platelet Volume 10.7 fL (9.4-12.4); Monocytes # (auto) 0.47 K/uL (0.11-0.59); Monocytes % (auto) 6.8 %; Neutrophils # (auto) 4.93 K/uL (1.40-6.50); Neutrophils % (auto) 71.5 %; Platelet Count 209 K/uL (130-400); RDW Coefficient of Variation 14.6 % (11.5-14.5); RDW Standard Deviation 48.2 fL (36.4-46.3); Red Blood Count 5.25 M/uL (4.70-6.10)
[2023-11-30] MEDS: KETOROLAC TROMETHAMINE 15 MG/ML VIAL IV STA (10:32)
[2023-11-30] MEDS: CYCLOBENZAPRINE HCL 10 MG TAB PO STA (10:32)
[2023-11-30 10:47] LABS: Albumin Globulin Ratio 1.5 (0.9-2); Albumin Level 4.4 gm/dl (3.4-5.0); BUN Creatinine Ratio 24.7 (10-20); Bilirubin,Total 0.5 mg/dl (0.2-1.0); Calcium 9.5 mg/dl (8.6-10.3); Creatinine Clr Calc Pharmacy 146.8 ml/min; Est GFR (African American) 100.7 ml/min; Est GFR (Non-African American) 86.9 ml/min; Potassium 4.1 mmol/L (3.5-5.1); Total Protein 7.4 gm/dl (6.0-8.3)
[2023-11-30 10:53] LABS: Troponin I High Sensitivity 11.1 pg/ml (0-20)
[2023-11-30] MEDS: OPTIRAY 320 125ml IV ONE (11:08)
--- NOTE | 2023-11-30 11:36 | CT Scan Report ---
CT soft tissue neck w con CLINICAL HISTORY: left side neck pain Technique: Axial CT images of the soft tissues of the neck were obtained following intravenous admini stration of 100 cc of Omnipaque 300. Automated dose lowering techniques and/or adjustment according t o patient size were utilized for this exam. Comparison: None available at the time of this dictation. Findings: The oropharynx, hypopharynx, larynx, and trachea are patent. No enlarged lymph nodes are seen. The pa rotid glands, submandibular glands, and thyroid gland are unremarkable. Imaged portions of the brain parenchyma are unremarkable. The paranasal sinuses and mastoid air cell s are normal in appearance. Impression: No acute abnormality is seen. ACT 112: Negative or not required by law. Electronically signed by: Edwin Mathis M.D. 11/30/2023 11:34 AM
[2023-11-30] MEDS: LIDOCAINE 5% 1 PATCH TD STA (11:52)
--- NOTE | 2023-11-30 11:56 | XRay Report ---
SINGLE VIEW CHEST CLINICAL HISTORY: Atypical chest pain. Shoulder pain. FINDINGS: An AP, portable, upright chest radiograph is compared to chest x-ray and chest CT dated 01/23/2023. The heart is enlarged. There is pulmonary vascular congestion. Atelectasis is noted at the michael ng bases. The lungs and pleural spaces are otherwise clear. No pneumothorax is seen. The bony thorax is grossly intact. IMPRESSION: Cardiomegaly with pulmonary vascular congestion. ACT 112: Negative or not required by law. Electronically signed by: Laazrus Montes M.D. 11/30/2023 11:55 AM
[2023-11-30 11:59] LABS: Troponin I High Sensitivity 9.6 pg/ml (0-20)
[2023-11-30 12:08] LABS: Thyroid Stimulating Hormone 0.757 uIu/ml (0.300-4.500)
--- NOTE | 2023-11-30 12:26 | History & Physical Report ---
Date of Service November 30, 2023 Assessment & Plan (1) Episode of syncope: Plan: Admit to the PCU on telemetry and pulse oximetry Currently in sinus bradycardia with heart rate in the 40s to 50s but with intermittent sinus arrhythmia and changing T wave morphology at times Initially presented to the ED with progressive left-sided cervical pain with radiation to the left shoulder and chest. While in the ED he had a syncopal episode while sitting in bed during an acute episode of pain with associated 10- second pause on telemetry Patient is currently with a nonfocal neurologic exam, no reported seizure-like activity or loss of bowel or bladder function. Episode appears to be cardiac in nature Patient does not remember the event, just remembers waking people surrounding him Thus far 2 high-sensitivity troponin levels, potassium, and magnesium are s table Patient has remained stable on room air Will obtain TSH with reflex T4 if needed, tickborne panel, urgent TTE Cardiology has been consulted and messaged for evaluation as patient may requi re a pacemaker during this admission Will obtain D-dimer, if positive will obtain CTA of the chest to monitor for possible PE as he is high risk with his morbid obesity, heavy tobacco use, and limited mobility due to chronic low back pain Holding home metoprolol for now, he did have his a.m. dose Will likely need to hold timolol eyedrops at time admission until he is evaluated by Cardiology N.p.o. except meds until patient is evaluated by cardiology SQ heparin for DVT prophylaxis AM CBC, CMP, mag, PT/INR (2) Cervical radicular pain: Plan: Patient has been experiencing progressive left-sided cervical neck pain with radiation to the left shoulder and chest Pain for started after the patient woke while sleeping in his recliner with his neck in an awkward position Pain is significantly reproducible on palpation of the left cervical paraspinal muscles Patient also experiences significant reproduction of pain when he looks down into the left likely due to pinching cervical nerve root Strength is currently stable in the bilateral upper extremities Pain appears to be associated with likely cervical disc disease causing compression of cervical nerve roots along with associated muscle spasms Unfortunately pain will be difficult to control at the time of admission as we may need to hold most of his narcotics and muscle relaxers with his recent episode of significant sinus pause on telemetry and syncopal episode Will start lidocaine patch, 1 g p.o. Tylenol now followed by every 6 hours scheduled, and patient's home Lyrica Will place consult for pain management to see if they can possibly perform a nerve block while patient is admitted and/or follow-up outpatient (3) Sinus pause: Plan: See episode of syncope plan (4) Hypertension: Plan: Currently stable Holding metoprolol due to current bradycardia and syncopal episode Will continue home hydrochlorothiazide for now (5) Tobacco abuse: Plan: Patient smokes partially 2 packs of cigarettes a day for 30+ years Currently stable on room air without significant wheezing on exam Will wait to place nicotine patch until patient evaluated by cardiology Start incentive spirometry and as needed O2 to keep SpO2 between 89-92% as he likely has underlying COPD (6) Sleep apnea: Plan: Patient explains that he does have a CPAP machine at home but has not used it in for a long time as he was not able to previously tolerate the mask Patient sleeps in a recliner nightly Will order a chest CPAP to see if he can tolerate during admission and order as needed O2 to keep SpO2 between 89-92% Plan The patient was discussed with Dr. Malik at the time of the admission History of Present Illness Chief Complaint: neck/shoulder pain, sinus pause with syncope Primary Care Provider: MENDEZ Bradley Andrea is a 56-year-old male with a past medical history of type II DM, chronic low back pain with postlaminectomy syndrome, tobacco abuse, obesity, GERD, and hypertension Who presented to the [facility] ED on 11/30/2023 with an initial complaint of left-sided neck pain with radiation into the left shoulder and left chest. On arrival to the ED patient was noted to be hypertensive at 184/100, bradycardic with heart rate in the 40 to 50s, but otherwise stable. Labs including CBC, CMP, mag, initial high-sensitivity troponin were unremarkable. Chest x-ray was read as cardiomegaly with pulmonary vascular congestion. Soft tissue CT of the neck without contrast was read as negative for acute findings. The patient was initially given 10 mg p.o. Flexeril and 50 mg IV Toradol. While in the ED the patient had a progressive bradycardia and an episode of syncope while sitting in his bed associated with an approximately 10-second pause on telemetry. We are asked to admit the patient for ongoing evaluation and possible treatment of his bradycardia and significant sinus pauses with associated syncopal episode. Patient was seen in bed in no acute distress at the time of exam with his friend, Dennise, bedside. History is obtained from both. Dennise lives with the patient and helps care for him. They explained that the patient started to develop his left sided neck pain with radiation into the left shoulder left back and left chest approximately 2 weeks ago. The pain for started after he woke up while sleeping in his recliner, he felt as though he slept on his neck in an odd position. The patient states that the pain was initially mild to moderate but has increased in severity over this time. He states it significantly exacerbated when he turns his head to the left and looks down. Describes his pain as sharp stabbing sensation with associated paresthesias. Does not believe that he has increased weakness in the left upper extremity compared to right. Has been using his home baclofen, hydrocodoneacetaminophen, and Lyrica without improvement in the symptoms. Presented to the ED this morning due to his pain being so severe. The patient's friend, Dennise, witnessed the patient's loss of consciousness while sitting in bed while in the ED. She states that the patient had a sudden and severe episode of pain. She states his eyes got very big he dropped his coffee which she was holding in his right hand, stiffened, and was not responding. The patient states the only thing he remembers from this episode is a loud crash then waking with many people surrounding him. When asked, the patient confirms that he had all of his morning medications including his home dose of metoprolol to tartrate. The patient has smoked close to 2 packs of cigarettes daily for 30+ years but denies alcohol use. We discussed CODE STATUS, he is a full code and would want his friend, Dennise Sagar, to make medical decisions for him if he cannot make them himself. Please refer to Dr. Malik' attestation for any changes to the treatment plan Allergies Allergy/AdvReac Type Severity Reaction Status Date / Time bee venom protein (honey bee) Allergy Severe Swelling Verified 11/30/23 12:12 of Lip/Tongue/Throat gabapentin [From Neurontin] AdvReac Severe Confusion Verified 11/30/23 12:12 Home Medications Medication Instructions Recorded Confirmed Type baclofen 10 mg tablet 10 mg PO TID 12/26/17 11/30/23 History hydrochlorothiazide 50 mg tablet 50 mg PO QAM 12/26/17 11/30/23 History insulin aspart U-100 100 unit/mL 1 dose subcut TIDWMEAL 12/26/17 11/30/23 History (3 mL) subcutaneous pen (Novolog FlexPen U-100 Insulin aspart) insulin detemir U-100 100 unit/mL 70 unit subcut HS 12/26/17 11/30/23 History (3 mL) subcutaneous pen (Levemir FlexTouch U-100 Insulin) metformin 1,000 mg tablet 1,000 mg PO BID 12/26/17 11/30/23 History oxycodone 15 mg tablet,crush 15 mg PO Q12H 12/26/17 11/30/23 History resistant,extended release 12 hr (OxyContin) pregabalin 150 mg capsule (Lyrica) 150 mg PO TID 12/26/17 11/30/23 History tamsulosin 0.4 mg capsule 0.4 mg PO QAM 12/26/17 11/30/23 History timolol 0.25 % eye drops 1 drp OPB QAM 12/26/17 11/30/23 History travoprost 0.004 % eye drops 1 drp OPB PM 12/26/17 11/30/23 History (Travatan Z) aspirin 81 mg tablet,delayed 81 mg PO DAILY 07/21/22 11/30/23 History release sennosides 8.6 mg-docusate sodium 2 tab PO BID #60 tabs 07/22/22 11/30/23 Rx 50 mg tablet (Senokot-S) docusate sodium 100 mg tablet 200 mg PO BID 10/24/22 11/30/23 History gemfibrozil 600 mg tablet 600 mg PO BID 10/24/22 11/30/23 History metoprolol tartrate 25 mg tablet 25 mg PO DAILY 10/24/22 11/30/23 History omeprazole 40 mg capsule,delayed 40 mg PO QAM 10/24/22 11/30/23 History release Saccharomyces boulardii 250 mg 250 mg PO BID #20 caps 07/04/23 11/30/23 Rx capsule (Florastor) hydrocodone 7.5 mg-acetaminophen 1 tab PO TID PRN Pain 07/04/23 11/30/23 History 325 mg tablet Past Med/Surg History Problem List (Updated 11/30/23 @ 12:26 by Carlton Estrada PA-C) Tobacco abuse Sinus pause Episode of syncope Cervical radicular pain Constipation Abdominal pain (Acute) Cholelithiasis (Acute) Hypertension Hyperlipidemia Sleep apnea not currently using CPAP, sleeping in recliner Anxiety BPH (benign prostatic hyperplasia) Abdominal pain Diabetes mellitus type 1 Encounter for pre-operative examination Encounter for pre-operative examination Colon cancer screening Medical History Peripheral neuropathy Osteoarthritis Hiatal hernia GERD (gastroesophageal reflux disease) Glaucoma Depression Surgical History Hx of colonoscopy Cellulitis of leg RT/LEFT LEG ABLATIONS? History of anesthesia reaction CYST REMOVAL WAS TOLD "ALMOST LOST ON TABLE BY NURSE">UNSURE OF DETAILS History of carpal tunnel release LEFT Cyst REMOVAL Fusion of spine LUMBAR; L3-L5 History of tooth extraction Family History Mother Family history of diabetes mellitus Social History Smoking Status: Current every day smoker Tobacco Type: Cigarettes Cigarettes Per Day: 30 -ADVISED; Second Hand Exposure: No; Do You Dip or Chew Tobacco: No; Hx Alcohol Use: No Hx Substance Use: No Preferred Language: Italian Communication Ability: Effective Anthropology Department Chair Required: No Beliefs That Will Affect Care: None Current Living Situation: Spouse Current Living Situation Comment: FRIEND Feels Safe at Home: Yes Assistive Devices: Cane Physical Exam Physical Exam: Physical Exam: General: In mild distress due to pain, stated age, morbidly obese, non-toxic appearing HEENT: Normocephalic, atraumatic, no scleral icterus, pupils around round, symmetrical, and reactive to light, dry mucus membranes, trachea midline, no thyromegaly Chest/Pulm: No respiratory distress, symmetrical chest expansion, scattered expiratory wheezing Cardiac: bradycardic rate, regular rhythm, no murmurs noted Abdomen: obese abdomen, normoactive bowel sounds, soft, non-tender to palpation throughout Musculoskeletal: Patient with tenderness to palpation on the left paraspinal muscles in the cervical region with associated muscle spasms causing radiation of pain into the left shoulder and chest, no acute trauma on palpation Extremities: Radial, dorsalis pedis, and posterior tibial pulses are intact and symmetrical, symmetrical edema noted in the LE's Skin: Warm, dry, signs of chronic venous insufficiency in the LE's Neuro: Alert and oriented to person, place, month, year, and president, no focal defects, symmetrical strength in the UE's, no tremors noted Psych: Mild distress due to pain, calm and cooperative during the exam Results & Data Results & Data Vital Signs (Past 12 Hours) Vital Signs Temp Pulse Pulse Resp BP BP Pulse Ox 11/30/23 11:16 172/83 H 11/30/23 11:00 210/86 H 11/30/23 11:00 46 L 21 96 11/30/23 10:50 64 11/30/23 10:50 0 L 11/30/23 10:14 49 L 20 95 11/30/23 10:12 46 L 11/30/23 10:01 36.9 C 48 L 20 184/100 H 96 11/30/23 09:41 36 C L 46 L 20 130/67 95 O2 Del Method 11/30/23 11:16 11/30/23 11:00 11/30/23 11:00 11/30/23 10:50 11/30/23 10:50 11/30/23 10:14 Room Air 11/30/23 10:12 11/30/23 10:01 Room Air 11/30/23 09:41 Room Air Laboratory Results Abnormal lab results 11/30/23 Range/Units 10:11 RDW Std Deviation 48.2 H (36.4-46.3) fL RDW Coeff of [place] 14.6 H (11.5-14.5) % BUN 24 H (6-23) mg/dl BUN/Creatinine Ratio 24.7 H (10-20) Glucose 281 H (70-99(Fasting)) mg/dl Diagnostic Findings Chest X-Ray 11/30/23 10:09 SINGLE VIEW CHEST CLINICAL HISTORY: Atypical chest pain. Shoulder pain. FINDINGS: An AP, portable, upright chest radiograph is compared to chest x-ray and chest CT dated 01/23/2023. The heart is enlarged. There is pulmonary vascular congestion. Atelectasis is noted at the lung bases. The lungs and pleural spaces are otherwise clear. No pneumothorax is seen. The bony thorax is grossly intact. IMPRESSION: Cardiomegaly with pulmonary vascular congestion. ACT 112: Negative or not required by law. Electronically signed by: Lazarus Montes M.D. 11/30/2023 11:55 AM Soft Tissue Neck CT 11/30/23 10:19 CT soft tissue neck w con CLINICAL HISTORY: left side neck pain Technique: Axial CT images of the soft tissues of the neck were obtained following intravenous administration of 100 cc of Omnipaque 300. Automated dose lowering techniques and/or adjustment according to patient size were utilized for this exam. Comparison: None available at the time of this dictation. Findings: The oropharynx, hypopharynx, larynx, and trachea are patent. No enlarged lymph nodes are seen. The parotid glands, submandibular glands, and thyroid gland are unremarkable. Imaged portions of the brain parenchyma are unremarkable. The paranasal sinuses and mastoid air cells are normal in appearance. Impression: No acute abnormality is seen. ACT 112: Negative or not required by law. Electronically signed by: Edwin Mathis M.D. 11/30/2023 11:34 AM ECG Additional Comments: Sinus bradycardia with fusion complexes and right bundle branch block, no acute ST segment changes Code Status & VTE Plan Code Status Full code VTE Prophylaxis Plan VTE Prophylaxis will be ordered: Yes Supervising Physician Co-Signing Physician Notes I have personally seen, evaluated and examined the patient. I have also personally discussed the management of the patient with the resident physician/VIVIANE and I agree with the exam findings documented in the history and physical examination and the documented assessment and plan unless otherwise stated below. Brief Exam: In general this is a pleasant 58-year-old male who appears to be in some mild to moderate distress with his neck pain. This really his only complaint. Denies chest pain currently. He is accompanied by his significant other with whom he lives at the time of my examination and interview. HEENT: Normocephalic atraumatic. Neck: Limited exam tender with palpation as described above. Worse with movements especially with flexion. No appreciable carotid bruits but exam is somewhat limited due to his body habitus. Heart: Is regular rhythm at this time. However he is bradycardic in the 40s at the time of my exam. I do not appreciate murmur or rub. However exam is very limited given the patient's AP diameter. Lungs: Diminished no adventitious sounds but again limited exam due to body habitus. Abdomen: Obese soft and nontender remaining abdominal exam is equivocal again due to body habitus. Extremities: Intact no peripheral cyanosis clubbing or edema appreciated. Neurologically: Grossly intact with no focal deficit on exam. Assessment/plan: As discussed above. Will keep the patient on telemetry. Hold all negative chronotropic's at this time. TSH is reassuring. We have contacted cardiology/electrophysiology who will see the patient on consultation we will keep the patient n.p.o. till seen by cardiology. We will cycle troponins. Do an echocardiogram. Given the bradycardia and sinus pause tickborne illness panel was also ordered. We have consulted pain management for the patient's neck pain due to his cardiac issues currently we are very limited in terms of what we can use for pain control. solar installation manager will be consulted for try to arrange outpatient CPAP again as the patient's machine is not currently working due to not using due to noncompliance. Importance was explained to him that untreated sleep apnea can cause long-term cardiac issues and damage etc. Please refer to orders for further planning. PG Care Time/CCT Total # of Minutes Spent Total Time Spent with Patient: Total time spent is greater than 50% in coordination of care (as documented) at patient's floor/unit and/or counseling patient: C[place] [address] INT INP/OBS CARE 3/75MIN Patient Type Established Medical Decision Making High Complexity Diagnoses Episode of syncope R55 Cervical radicular pain M54.12 Sinus pause I45.5 Hypertension I10 Tobacco abuse Z72.0 Sleep apnea G47.30
[2023-11-30] MEDS ORDERED: GLUCOSE 40% GEL 15 GM TUBE PO PRN (12:28)
[2023-11-30] MEDS ORDERED: CARBOHYDRATES FOR HYPOGLYCEMIA PO PRN (12:28)
[2023-11-30] MEDS ORDERED: GLUCOSE 10 TAB/TUBE PO PRN (12:28)
[2023-11-30] MEDS ORDERED: DEXTROSE 50% 50 ML SYRINGE IV PRN (12:28)
[2023-11-30] MEDS ORDERED: GLUCAGON FOR INJ 1 MG VIAL SQ PRN (12:28)
[2023-11-30 12:46] LABS: D Dimer 400 ug/L FEU (0-500)
--- NOTE | 2023-11-30 13:19 | XRay Report ---
XR shoulder LT min 2V routine CLINICAL HISTORY: Left shoulder pain. COMPARISON: None FINDINGS: Alignment of the left shoulder is anatomic. There is no acute fracture. There are no osseo us lesions. There is moderate joint space narrowing and osteophytosis of the acromioclavicular joint. There is mild glenohumeral joint osteophytosis. IMPRESSION: 1. No fracture or dislocation within the left shoulder. 2. Moderate left AC joint osteoarthritis. Mild left glenohumeral joint osteoarthritis. ACT 112: Negative or not required by law. Electronically signed by: John Menendez M.D. 11/30/2023 1:16 PM
[2023-11-30] MEDS: INSULIN ASPART PER UNIT CHARGE SC SCH (13:20)
[2023-11-30] MEDS: ACETAMINOPHEN 500 MG TAB PO STA (13:53)
[2023-11-30] MEDS: LANTUS PER UNIT CHARGE SQ SCH (13:55)
[2023-11-30] MEDS: PREGABALIN 150 MG CAP PO SCH (13:55)
--- NOTE | 2023-11-30 14:48 | Electrocardiogram Report ---
Test Reason : Blood Pressure : */* mmHG Vent. Rate : 46 BPM Atrial Rate : 46 BPM P-R Int : 162 ms QRS Dur : 158 ms QT Int : 474 ms P-R-T Axes : 48 38 34 degrees QTcB Int : 414 ms Sinus bradycardia with with intermittent Right bundle branch block Abnormal ECG Confirmed by Sebastian Diaz ([id number]) on 11/30/2023 2:48:34 PM Referred By: REFERRED SELF Confirmed By: Sebastian Diaz
[2023-11-30] MEDS: PERFLUTREN LIPID MICROSPHERE (DEFINITY) IV ONE (14:54)
[2023-11-30] MEDS: HEPARIN SOD 5,000 UNIT/0.5 ML VIAL SQ SCH (15:03)
[2023-11-30] MEDS: ACETAMINOPHEN 325 MG TAB PO SCH (16:30)
--- NOTE | 2023-11-30 16:34 | XCELERA ---
[id number] \\[email or web address]\[id number]
--- NOTE | 2023-11-30 17:12 | Cardiology Consultation ---
Date of Consultation November 30, 2023 Assessment & Plan (1) Sinus pause: (2) Episode of syncope: (3) Sinus bradycardia: Plan 1. Syncope: Patient had syncope by report. He cannot recall the event. I think it is possible he was simply sleeping at the time. However, he could ce rtainly suffer syncope from a extended sinus pause. He did not describe syncope in the past. Dizziness and lightheadedness have not been a feature leading up to his current admission. Think this episode was likely situational in nature. Stopping his metoprolol and treating his sleep apnea would likely reduce the frequency and severity of additional episodes. 2. Sinus bradycardia: This is likely due to combination of factors including his sedentary and sedated state, chronic use of narcotics and metoprolol. Because he is very sedentary do not think he is generally symptomatic as result. I do not think there is any need for intervention with the exception of stopping metoprolol. 3. Hypertension: He cannot recall why he is on metoprolol. Think if this was prescribed as an antihypertensive the kidneys be discontinued in favor of alternate agents such as perhaps an SONYA-inhibitor. 4. Rate related right bundle branch block. At slower heart rates the patient's QRS complex normalizes. Not a clinical concern in the absence of higher degree AV block. I do not think there is any contraindication to continued use of narcotics or timolol. I would recommend discontinuation of the patient's metoprolol. History of Present Illness Reason for Consultation: Sinus arrest, syncope Requesting Physician: Sean Attending Physician: Arnie Malik, PhD, DO History of Present Illness The patient is a 58-year-old gentleman without a known history of cardiac disease who presented to the emergency room primarily for symptoms of left-sided neck, shoulder and arm discomfort. The patient states that he believes he suffered a minor injury to his neck a few weeks ago. However, recently he exacerbated this injury and has been having severe neck and arm pain. This tends to occur primarily with turning his head or moving his neck in a certain position. Due to the intense nature of the pain he presented to the emergency room for evaluation. While in the emergency room the patient was on telemetry and noted to have an episode of sinus arrest lasting several seconds. He was reported to have lost consciousness during this episode. The patient can not provide little information regarding the episode in question. He does remember hearing voices and waking up when something struck his forehead. He did not report any specific symptoms leading up to the event. However, he was administered some analgesics in the emergency room and states that he was quite bored and was sleeping on and off. Afterwards he seemed to feel well without any new symptoms. In general he is a fairly sedentary individual. He has difficulty with activity due to chronic back pain and neuropathy in his lower extremities. He is able ambulate around his house in limited fashion. He cannot stand for any extended period of time. He spends a majority of his day in a chair and sleeps in a recliner. He has known sleep apnea but has not been using his CPAP. He generally is not aware of palpitations. He did not describe dizziness, lightheadedness or other episodes of syncope. He knows that he has fallen asleep quickly in the past due to his severe sleep apnea and lack of sleep. Allergies Allergy/AdvReac Type Severity Reaction Status Date / Time bee venom protein (honey bee) Allergy Severe Swelling Verified 11/30/23 12:12 of Lip/Tongue/Throat gabapentin [From Neurontin] AdvReac Severe Confusion Verified 11/30/23 12:12 Home Medications Medication Instructions Recorded Confirmed Type baclofen 10 mg tablet 10 mg PO TID 12/26/17 11/30/23 History hydrochlorothiazide 50 mg tablet 50 mg PO QAM 12/26/17 11/30/23 History insulin aspart U-100 100 unit/mL 1 dose subcut TIDWMEAL 12/26/17 11/30/23 History (3 mL) subcutaneous pen (Novolog FlexPen U-100 Insulin aspart) insulin detemir U-100 100 unit/mL 70 unit subcut HS 12/26/17 11/30/23 History (3 mL) subcutaneous pen (Levemir FlexTouch U-100 Insulin) metformin 1,000 mg tablet 1,000 mg PO BID 12/26/17 11/30/23 History oxycodone 15 mg tablet,crush 15 mg PO Q12H 12/26/17 11/30/23 History resistant,extended release 12 hr (OxyContin) pregabalin 150 mg capsule (Lyrica) 150 mg PO TID 12/26/17 11/30/23 History tamsulosin 0.4 mg capsule 0.4 mg PO QAM 12/26/17 11/30/23 History timolol 0.25 % eye drops 1 drp OPB QAM 12/26/17 11/30/23 History travoprost 0.004 % eye drops 1 drp OPB PM 12/26/17 11/30/23 History (Travatan Z) aspirin 81 mg tablet,delayed 81 mg PO DAILY 07/21/22 11/30/23 History release sennosides 8.6 mg-docusate sodium 2 tab PO BID #60 tabs 07/22/22 11/30/23 Rx 50 mg tablet (Senokot-S) docusate sodium 100 mg tablet 200 mg PO BID 10/24/22 11/30/23 History gemfibrozil 600 mg tablet 600 mg PO BID 10/24/22 11/30/23 History metoprolol tartrate 25 mg tablet 25 mg PO DAILY 10/24/22 11/30/23 History omeprazole 40 mg capsule,delayed 40 mg PO QAM 10/24/22 11/30/23 History release Saccharomyces boulardii 250 mg 250 mg PO BID #20 caps 07/04/23 11/30/23 Rx capsule (Florastor) hydrocodone 7.5 mg-acetaminophen 1 tab PO TID PRN Pain 07/04/23 11/30/23 History 325 mg tablet Patient History Medical History Peripheral neuropathy Osteoarthritis Hiatal hernia GERD (gastroesophageal reflux disease) Glaucoma Depression Surgical History Hx of colonoscopy Cellulitis of leg RT/LEFT LEG ABLATIONS? History of anesthesia reaction CYST REMOVAL WAS TOLD "ALMOST LOST ON TABLE BY NURSE">UNSURE OF DETAILS History of carpal tunnel release LEFT Cyst REMOVAL Fusion of spine LUMBAR; L3-L5 History of tooth extraction Family History Mother Family history of diabetes mellitus Social History Smoking Status: Current every day smoker Tobacco Type: Cigarettes Cigarettes Per Day: 1 1/2 pack per day; Second Hand Exposure: No; Do You Dip or Chew Tobacco: No; Hx Alcohol Use: No Hx Substance Use: No Preferred Language: Cantonese Trinidadian Communication Ability: Effective Associate Curator Required: No Beliefs That Will Affect Care: None Current Living Situation: Significant Other Current Living Situation Comment: FRIEND Feels Safe at Home: Yes Assistive Devices: Cane Review of Systems Review of Systems: Per HPI Physical Exam Physical Exam: The patient is alert and oriented. Mood and affect appeared normal. He answered all questions appropriately. Obese HEENT: Pupils are equal and reactive to light and accommodation. Extraocular movements are intact. The sclerae are anicteric. Neuro: Cranial nerves intact Neck: Redundant neck tissue Lungs: Clear to auscultation bilaterally. He has good air movement without use of accessory muscles. No rales wheezes or rhonchi. Cardiac: Heart demonstrates a regular rate and rhythm. Normal S1 and S2. No murmurs on examination. Pulses: The patient has palpable radial pulses bilaterally that are equal in intensity Extremities: Moderate edema bilaterally with trophic changes. Skin: I did not appreciate any rashes on examination today. Results & Data Vital Signs (Past 12 Hours) Vital Signs Temp Pulse Pulse Resp BP BP Pulse Ox 11/30/23 15:25 39 L 11/30/23 15:18 36.4 C L 45 L 17 176/68 H 94 11/30/23 13:19 11/30/23 13:19 36.4 C L 44 L 17 159/54 H 94 11/30/23 13:15 36.7 C 44 L 16 159/54 H 94 11/30/23 12:48 11/30/23 12:20 146/62 H 11/30/23 12:00 46 L 18 11/30/23 11:48 46 L 21 11/30/23 11:42 46 L 20 11/30/23 11:30 171/79 H 11/30/23 11:21 45 L 17 96 11/30/23 11:18 159/69 H 11/30/23 11:16 172/83 H 11/30/23 11:00 210/86 H 11/30/23 11:00 46 L 21 96 11/30/23 10:50 64 11/30/23 10:50 0 L 11/30/23 10:14 49 L 20 95 11/30/23 10:12 46 L 11/30/23 10:01 36.9 C 48 L 20 184/100 H 96 11/30/23 09:41 36 C L 46 L 20 130/67 95 O2 Del Method 11/30/23 15:25 11/30/23 15:18 Room Air 11/30/23 13:19 Room Air 11/30/23 13:19 Room Air 11/30/23 13:15 Room Air 11/30/23 12:48 Room Air 11/30/23 12:20 11/30/23 12:00 11/30/23 11:48 11/30/23 11:42 11/30/23 11:30 11/30/23 11:21 11/30/23 11:18 11/30/23 11:16 11/30/23 11:00 11/30/23 11:00 11/30/23 10:50 11/30/23 10:50 11/30/23 10:14 Room Air 11/30/23 10:12 11/30/23 10:01 Room Air 11/30/23 09:41 Room Air Laboratory Results Abnormal Lab Results 11/30/23 11/30/23 11/30/23 10:11 11:20 13:15 WBC 6.90 RBC 5.25 Hgb 15.8 Hct 47.6 MCV 90.7 MCH 30.1 MCHC 33.2 RDW Std Deviation 48.2 H RDW Coeff of [place] 14.6 H Plt Count 209 MPV 10.7 Immature Gran % (Auto) 0.4 Neut % (Auto) 71.5 Lymph % (Auto) 18.4 [place] % (Auto) 6.8 Eos % (Auto) 2.5 Baso % (Auto) 0.4 Neut # (Auto) 4.93 Lymph # (Auto) 1.27 [place] # (Auto) 0.47 Eos # (Auto) 0.17 Baso # (Auto) 0.03 Immature Gran # (Auto) 0.03 D-Dimer 400 Sodium 137 Potassium 4.1 Chloride 104 Carbon Dioxide 25 Anion Gap 8 BUN 24 H Creatinine 0.97 Est Cr Clr Drug Dosing 146.8 Est GFR ( Amer) 100.7 Est GFR (Non-Af Amer) 86.9 BUN/Creatinine Ratio 24.7 H Glucose 281 H POC Glucose 125 H Calcium 9.5 Magnesium 2.0 Total Bilirubin 0.5 AST 16 ALT 14 Alkaline Phosphatase 63 Troponin I High Sens 11.1 9.6 Total Protein 7.4 Albumin 4.4 Globulin 3.0 Albumin/Globulin Ratio 1.5 TSH 0.757 Anaplasma Smear See Comment Babesia Smear See Comment Lyme Disease Screen Negative 11/30/23 16:43 WBC RBC Hgb Hct MCV MCH MCHC RDW Std Deviation RDW Coeff of [place] Plt Count MPV Immature Gran % (Auto) Neut % (Auto) Lymph % (Auto) [place] % (Auto) Eos % (Auto) Baso % (Auto) Neut # (Auto) Lymph # (Auto) [place] # (Auto) Eos # (Auto) Baso # (Auto) Immature Gran # (Auto) D-Dimer Sodium Potassium Chloride Carbon Dioxide Anion Gap BUN Creatinine Est Cr Clr Drug Dosing Est GFR ( Amer) Est GFR (Non-Af Amer) BUN/Creatinine Ratio Glucose POC Glucose 101 H Calcium Magnesium Total Bilirubin AST ALT Alkaline Phosphatase Troponin I High Sens Total Protein Albumin Globulin Albumin/Globulin Ratio TSH Anaplasma Smear Babesia Smear Lyme Disease Screen Diagnostic Findings Neck CT, shoulder x-ray and chest x-ray 11/30/2023: No acute findings Echocardiogram 11/30/2023: Very limited images with overall preserved LV systolic function. ECG Additional Comments: EKG demonstrates normal sinus rhythm With intermittent right bundle branch block PG Care Time/CCT Total # of Minutes Spent Total Time Spent with Patient: Total time spent is greater than 50% in coordination of care (as documented) at patient's floor/unit and/or counseling patient: Coding Level of Care Code 70460 IN/OBS CONSULT LVL 4,60M Diagnoses Sinus pause I45.5 Episode of syncope R55 Sinus bradycardia R00.1
[2023-11-30] MEDS ORDERED: NALOXONE HCL 0.4 MG/1 ML VIAL/CARP IV PRN (17:27)
[2023-11-30] MEDS: oxyCODONE HCL 15 MG TABCR (OxyCONTIN) PO STA (18:29)
[2023-11-30] MEDS: TRAVOPROST Z 0.004% OPH SOLN 2.5 ML BTL OPB SCH (20:33)
[2023-11-30] MEDS: DOCUSATE SODIUM 100 MG CAP PO SCH (20:33)
[2023-11-30] MEDS: BACLOFEN 10 MG TAB PO SCH (20:33)
[2023-11-30] MEDS: TAMSULOSIN HCL 0.4 MG CAP PO ONE (20:34)
[2023-11-30] MEDS: gemfibroziL 600 MG TAB PO SCH (20:35)
[2023-11-30] MEDS: DOCUSATE SODIUM/SENNA 50/8.6MG TAB PO SCH (20:35)
[2023-11-30] MEDS ORDERED: DOCUSATE SODIUM 100 MG CAP PO SCH (21:00)
[2023-11-30] MEDS ORDERED: DOCUSATE SODIUM/SENNA 50/8.6MG TAB PO SCH (21:00)
[2023-11-30] MEDS ORDERED: HYDROmorphone INJ 0.5 MG/0.5 ML SYR IV PRN (21:00)
[2023-11-30] MEDS: hydrALAZINE HCL 20 MG/ML VIAL IV ONE (21:12)
[2023-12-01 05:23] LABS: Basophils # (auto) 0.04 K/uL (0.00-0.20); Basophils % (auto) 0.7 %; Eosinophils # (auto) 0.17 K/uL (0.00-0.50); Eosinophils % (auto) 3.1 %; Hematocrit (blood only) 45.1 % (42.0-52.0); Immature Granulocytes # (auto) 0.03 K/uL (0.01-0.20); Immature Granulocytes % (auto) 0.6 %; Lymphocytes % (auto) 29.5 %; Mean Corpuscular Hemoglobin 29.6 pg (25.0-34.0); Mean Corpuscular Hgb Conc 33.3 g/dL (32.0-36.0); Monocytes # (auto) 0.46 K/uL (0.11-0.59); Monocytes % (auto) 8.5 %; Neutrophils # (auto) 3.13 K/uL (1.40-6.50); Neutrophils % (auto) 57.6 %; Platelet Count 182 K/uL (130-400); RDW Coefficient of Variation 14.5 % (11.5-14.5); RDW Standard Deviation 46.5 fL (36.4-46.3); Red Blood Count 5.07 M/uL (4.70-6.10); White Blood Count 5.43 K/ul (4.8-10.8)
[2023-12-01 05:24] LABS: Albumin Globulin Ratio 1.4 (0.9-2); Albumin Level 4.1 gm/dl (3.4-5.0); BUN Creatinine Ratio 23.2 (10-20); Bilirubin,Total 0.7 mg/dl (0.2-1.0); Calcium 9.2 mg/dl (8.6-10.3); Creatinine Clr Calc Pharmacy 143.8 ml/min; Est GFR (African American) 98.3 ml/min; Est GFR (Non-African American) 84.8 ml/min; Globulin 2.9 gm/dl (2.5-4.0); Magnesium 2.1 mg/dl (1.7-2.4); Potassium 3.9 mmol/L (3.5-5.1)
[2023-12-01 05:31] LABS: Prothrombin Time 10.9 Seconds (9.0-12.0)
[2023-12-01 05:33] LABS: Troponin I High Sensitivity 13.7 pg/ml (0-20)
[2023-12-01] MEDS: TAMSULOSIN HCL 0.4 MG CAP PO SCH (08:27)
[2023-12-01] MEDS: ASPIRIN 81 MG ECTAB PO SCH (08:27)
[2023-12-01] MEDS: oxyCODONE HCL 15 MG TABCR (OxyCONTIN) PO SCH (08:27)
[2023-12-01] MEDS: hydroCHLOROthiazide 25 MG TAB PO SCH (08:28)
[2023-12-01] MEDS: hydrALAZINE HCL 20 MG/ML VIAL IV PRN (09:56)
[2023-12-01] MEDS: LOSARTAN POTASSIUM 50 MG TAB PO SCH (10:02)
--- NOTE | 2023-12-01 10:12 | Cardiology Progress Note ---
Date of Service December 01, 2023 Assessment & Plan (1) Sinus pause: (2) Episode of syncope: (3) Sinus bradycardia: Plan 1. Syncope: Possible syncope in the setting of sinus arrest. It is also possible that the patient was sleeping or quite drowsy from analgesics. In any event there was a gradual reduction in the sinus rate with a ventral sinus pause. I think this is a relatively benign finding. No prior history of syncope. This seems situational. 2. Sinus bradycardia: Improved slightly. He does have sinus bradycardia specially when sleeping and resting. I think this is a physiologic phenomenon. Likely worsened by known obstructive sleep apnea. He has appropriate heart rate response with activity. Again, metoprolol stopped in favor of alternative antihypertensives. 3. Hypertension: He cannot recall why he is on metoprolol. Will try some alternative antihypertensives. 4. Rate related right bundle branch block. At slower heart rates the patient's QRS complex normalizes. Not a clinical concern in the absence of higher degree AV block. If the patient was otherwise feeling well, ambulatory and ready for discharge, I think he can be safely sent home without metoprolol. Can follow up with his PCP or our clinic in [place] for recurrent symptoms. Admission and Anticipated Discharge Date Admission Date: November 30, 2023 Subjective This morning the patient reported being tired. He did not sleep well last night due to concerns over his heart rate. He continuously watch the heart rate monitor and was afraid that if he went to sleep his heart would stop. He is anxious to go home. Minimal ambulation. No chest pain. No breathing difficulty. Review of Systems Review of Systems: Per HPI. Persistent neck pain. Physical Exam Physical Exam: The patient is alert and oriented. Mood and affect appeared normal. He answered all questions appropriately. Obese HEENT: Pupils are equal and reactive to light and accommodation. Extraocular movements are intact. The sclerae are anicteric. Neuro: Cranial nerves intact Lungs: Clear to auscultation bilaterally. He has good air movement without use of accessory muscles. No rales wheezes or rhonchi. Cardiac: Heart demonstrates a regular rate and rhythm. Normal S1 and S2. No murmurs on examination. Pulses: The patient has palpable radial pulses bilaterally that are equal in intensity Extremities: Moderate edema bilaterally with trophic changes. Skin: I did not appreciate any rashes on examination today. Results & Data Vital Signs (Past 12 Hours) Vital Signs Temp Pulse Resp BP BP Pulse Ox O2 Del Method 12/01/23 08:06 36.5 C 50 L 18 193/64 H 93 Room Air 12/01/23 08:00 Room Air 12/01/23 02:56 36.5 C 45 L 17 130/66 92 Room Air 11/30/23 22:31 36.6 C 49 L 21 184/75 H 94 CPAP Laboratory Results Abnormal Lab Results 11/30/23 11/30/23 11/30/23 10:11 11:20 13:15 WBC 6.90 RBC 5.25 Hgb 15.8 Hct 47.6 MCV 90.7 MCH 30.1 MCHC 33.2 RDW Std Deviation 48.2 H RDW Coeff of [place] 14.6 H Plt Count 209 MPV 10.7 Immature Gran % (Auto) 0.4 Neut % (Auto) 71.5 Lymph % (Auto) 18.4 [place] % (Auto) 6.8 Eos % (Auto) 2.5 Baso % (Auto) 0.4 Neut # (Auto) 4.93 Lymph # (Auto) 1.27 [place] # (Auto) 0.47 Eos # (Auto) 0.17 Baso # (Auto) 0.03 Immature Gran # (Auto) 0.03 PT INR D-Dimer 400 Sodium 137 Potassium 4.1 Chloride 104 Carbon Dioxide 25 Anion Gap 8 BUN 24 H Creatinine 0.97 Est Cr Clr Drug Dosing 146.8 Est GFR ( Amer) 100.7 Est GFR (Non-Af Amer) 86.9 BUN/Creatinine Ratio 24.7 H Glucose 281 H POC Glucose 125 H Calcium 9.5 Magnesium 2.0 Total Bilirubin 0.5 AST 16 ALT 14 Alkaline Phosphatase 63 Troponin I High Sens 11.1 9.6 Total Protein 7.4 Albumin 4.4 Globulin 3.0 Albumin/Globulin Ratio 1.5 TSH 0.757 Anaplasma Smear See Comment Babesia Smear See Comment Lyme Disease Screen Negative 11/30/23 11/30/23 11/30/23 16:43 19:23 20:04 WBC RBC Hgb Hct MCV MCH MCHC RDW Std Deviation RDW Coeff of [place] Plt Count MPV Immature Gran % (Auto) Neut % (Auto) Lymph % (Auto) [place] % (Auto) Eos % (Auto) Baso % (Auto) Neut # (Auto) Lymph # (Auto) [place] # (Auto) Eos # (Auto) Baso # (Auto) Immature Gran # (Auto) PT INR D-Dimer Sodium Potassium Chloride Carbon Dioxide Anion Gap BUN Creatinine Est Cr Clr Drug Dosing Est GFR ( Amer) Est GFR (Non-Af Amer) BUN/Creatinine Ratio Glucose POC Glucose 101 H 181 H Calcium Magnesium Total Bilirubin AST ALT Alkaline Phosphatase Troponin I High Sens 13.0 Total Protein Albumin Globulin Albumin/Globulin Ratio TSH Anaplasma Smear Babesia Smear Lyme Disease Screen 11/30/23 11/30/23 12/01/23 22:29 22:41 04:18 WBC 5.43 RBC 5.07 Hgb 15.0 Hct 45.1 MCV 89.0 MCH 29.6 MCHC 33.3 RDW Std Deviation 46.5 H RDW Coeff of [place] 14.5 Plt Count 182 MPV 11.0 Immature Gran % (Auto) 0.6 Neut % (Auto) 57.6 Lymph % (Auto) 29.5 [place] % (Auto) 8.5 Eos % (Auto) 3.1 Baso % (Auto) 0.7 Neut # (Auto) 3.13 Lymph # (Auto) 1.60 [place] # (Auto) 0.46 Eos # (Auto) 0.17 Baso # (Auto) 0.04 Immature Gran # (Auto) 0.03 PT 10.9 INR 1.0 D-Dimer Sodium 136 Potassium 3.9 Chloride 103 Carbon Dioxide 24 Anion Gap 9 BUN 23 Creatinine 0.99 Est Cr Clr Drug Dosing 143.8 Est GFR ( Amer) 98.3 Est GFR (Non-Af Amer) 84.8 BUN/Creatinine Ratio 23.2 H Glucose 195 H POC Glucose 179 H Calcium 9.2 Magnesium 2.1 Total Bilirubin 0.7 AST 15 ALT 13 Alkaline Phosphatase 50 Troponin I High Sens 13.2 13.7 Total Protein 7.0 Albumin 4.1 Globulin 2.9 Albumin/Globulin Ratio 1.4 TSH Anaplasma Smear Babesia Smear Lyme Disease Screen 12/01/23 07:39 WBC RBC Hgb Hct MCV MCH MCHC RDW Std Deviation RDW Coeff of [place] Plt Count MPV Immature Gran % (Auto) Neut % (Auto) Lymph % (Auto) [place] % (Auto) Eos % (Auto) Baso % (Auto) Neut # (Auto) Lymph # (Auto) [place] # (Auto) Eos # (Auto) Baso # (Auto) Immature Gran # (Auto) PT INR D-Dimer Sodium Potassium Chloride Carbon Dioxide Anion Gap BUN Creatinine Est Cr Clr Drug Dosing Est GFR ( Amer) Est GFR (Non-Af Amer) BUN/Creatinine Ratio Glucose POC Glucose 238 H Calcium Magnesium Total Bilirubin AST ALT Alkaline Phosphatase Troponin I High Sens Total Protein Albumin Globulin Albumin/Globulin Ratio TSH Anaplasma Smear Babesia Smear Lyme Disease Screen PG Care Time/CCT Total # of Minutes Spent Total Time Spent with Patient: Total time spent is greater than 50% in coordination of care (as documented) at patient's floor/unit and/or counseling patient: Coding Level of Care Code 02288 SUB INP/OBS CARE 2/35MIN Diagnoses Sinus pause I45.5 Episode of syncope R55 Sinus bradycardia R00.1
[2023-12-01 11:40] VITALS: RESP 20
--- NOTE | 2023-12-01 12:31 | Pain Management Consultation ---
Date of Consultation December 01, 2023 Assessment & Plan (1) Cervicalgia: Plan Recommend continuation of lidocaine patches, applying heating pad and stretches. Could consider starting physical therapy to work with the patient during hospitalization. He is willing to do physical therapy on an outpatient basis. He is on OxyContin 15 mg twice daily and baclofen 10 mg 3 times daily chronically. Do not recommend any medication changes. Trigger point injections are not warranted given his physical exam. Thank you for the consultation. Please contact with any questions or concerns. History of Present Illness Reason for Consultation: neck pain Attending Physician: Evy Lea MD History of Present Illness Mr. Yeung is a 58-year-old male that came into the [facility] emergency department for acute left neck pain. He describes a sharp stabbing, cramping pain along the left cervical musculature. He states that the pain started about a week ago but significantly increased after lifting a heavy object. He states that the pain is aggravated with neck flexion and left lateral range of motion. He did contact his PCP and was told to go to the emergency department should the pain become uncontrolled. He is chronically on narcotics for chronic low back pain. He chronically takes OxyContin 15 mg twice daily and as needed hydrocodone 7.5/325 mg. During his emergency department visit he did have a syncopal event with sinus arrest lasting several seconds. Today he has been having difficulty controlling his blood pressure as well as his blood sugar. He denies any radicular symptoms down the left arm. No axial pain. No arm weakness or dropping of objects. Case discussed with Dr. Karol Abrams Allergies Allergy/AdvReac Type Severity Reaction Status Date / Time bee venom protein (honey bee) Allergy Severe Swelling Verified 11/30/23 12:12 of Lip/Tongue/Throat gabapentin [From Neurontin] AdvReac Severe Confusion Verified 11/30/23 12:12 Home Medications Medication Instructions Recorded Confirmed Type baclofen 10 mg tablet 10 mg PO TID 12/26/17 11/30/23 History hydrochlorothiazide 50 mg tablet 50 mg PO QAM 12/26/17 11/30/23 History insulin aspart U-100 100 unit/mL 1 dose subcut TIDWMEAL 12/26/17 11/30/23 History (3 mL) subcutaneous pen (Novolog FlexPen U-100 Insulin aspart) insulin detemir U-100 100 unit/mL 70 unit subcut HS 12/26/17 11/30/23 History (3 mL) subcutaneous pen (Levemir FlexTouch U-100 Insulin) metformin 1,000 mg tablet 1,000 mg PO BID 12/26/17 11/30/23 History oxycodone 15 mg tablet,crush 15 mg PO Q12H 12/26/17 11/30/23 History resistant,extended release 12 hr (OxyContin) pregabalin 150 mg capsule (Lyrica) 150 mg PO TID 12/26/17 11/30/23 History tamsulosin 0.4 mg capsule 0.4 mg PO QAM 12/26/17 11/30/23 History timolol 0.25 % eye drops 1 drp OPB QAM 12/26/17 11/30/23 History travoprost 0.004 % eye drops 1 drp OPB PM 12/26/17 11/30/23 History (Travatan Z) aspirin 81 mg tablet,delayed 81 mg PO DAILY 07/21/22 11/30/23 History release sennosides 8.6 mg-docusate sodium 2 tab PO BID #60 tabs 07/22/22 11/30/23 Rx 50 mg tablet (Senokot-S) docusate sodium 100 mg tablet 200 mg PO BID 10/24/22 11/30/23 History gemfibrozil 600 mg tablet 600 mg PO BID 10/24/22 11/30/23 History metoprolol tartrate 25 mg tablet 25 mg PO DAILY 10/24/22 11/30/23 History omeprazole 40 mg capsule,delayed 40 mg PO QAM 10/24/22 11/30/23 History release Saccharomyces boulardii 250 mg 250 mg PO BID #20 caps 07/04/23 11/30/23 Rx capsule (Florastor) hydrocodone 7.5 mg-acetaminophen 1 tab PO TID PRN Pain 07/04/23 11/30/23 History 325 mg tablet Pain History Previous Imaging and Results Imaging: CT soft tissue neck w con CLINICAL HISTORY: left side neck pain Technique: Axial CT images of the soft tissues of the neck were obtained following intravenous administration of 100 cc of Omnipaque 300. Automated dose lowering techniques and/or adjustment according to patient size were utilized for this exam. Comparison: None available at the time of this dictation. Findings: The oropharynx, hypopharynx, larynx, and trachea are patent. No enlarged lymph nodes are seen. The parotid glands, submandibular glands, and thyroid gland are unremarkable. Imaged portions of the brain parenchyma are unremarkable. The paranasal sinuses and mastoid air cells are normal in appearance. Impression: No acute abnormality is seen. ACT 112: Negative or not required by law. Electronically signed by: Edwin Mathis M.D. 11/30/2023 11:34 AM Patient History Medical History Peripheral neuropathy Osteoarthritis Hiatal hernia GERD (gastroesophageal reflux disease) Glaucoma Depression Surgical History Hx of colonoscopy Cellulitis of leg RT/LEFT LEG ABLATIONS? History of anesthesia reaction CYST REMOVAL WAS TOLD "ALMOST LOST ON TABLE BY NURSE">UNSURE OF DETAILS History of carpal tunnel release LEFT Cyst REMOVAL Fusion of spine LUMBAR; L3-L5 History of tooth extraction Family History Mother Family history of diabetes mellitus Social History Smoking Status: Current every day smoker Tobacco Type: Cigarettes Cigarettes Per Day: 1 1/2 pack per day; Second Hand Exposure: No; Do You Dip or Chew Tobacco: No; Hx Alcohol Use: No Hx Substance Use: No Preferred Language: Cantonese Portuguese Communication Ability: Effective Clergy Member Required: No Beliefs That Will Affect Care: None Current Living Situation: Significant Other Current Living Situation Comment: FRIEND Feels Safe at Home: Yes Assistive Devices: Cane Physical Exam Physical Exam: GENERAL: This is a morbidly obese 58 year old male. At rest he is leaning his head towards the right for comfort. He is resting quietly in the recliner. HEAD/FACE: Normocephalic and atraumatic. EYES: No drainage or conjunctival injection. ENT: Nose without bleeding or discharge. Oral mucosa moist. NECK: There is significant pain elicited with left lateral neck range of motion as well as neck flexion. Full extension and right lateral range of motion. Negative Spurling maneuver. There is tenderness along the left rhomboid, left trapezius, left scalene musculature without any muscle spasm or trigger points noted. RESPIRATORY: Patient with unlabored breathing. No signs of respiratory distress. CHEST/AXILLA: Chest movement symmetrical. No deformities noted. SKIN: [place], warm and dry. No rash noted. MS/EXTREMITY: No swelling, no deformities. Moving extremities appropriately. NEURO: Alert and appears oriented. Speech is fluent. Cranial Nerves are grossly intact. PSYCH: Alert, pleasant, affect is calm
[2023-12-01] MEDS ORDERED: LOSARTAN POTASSIUM 50 MG TAB PO STA (14:04)
[2023-12-01] MEDS: INSULIN ASPART PER UNIT CHARGE SC STA ×2 (14:58→17:03)
[2023-12-01] MEDS: NIFEdipine EXTENDED REL 30 MG TABCR PO STA (15:59)
[2023-12-01 16:01] VITALS: TEMP 97.9; O2SAT 95
--- NOTE | 2023-12-01 18:03 | Discharge Summary ---
Discharge Summary Date of Service December 01, 2023 Principal Dx & Hospital Course #1 = Principal Diagnosis (1) Episode of syncope: Admit to the PCU on telemetry and pulse oximetry Currently in sinus bradycardia with heart rate in the 40s to 50s but with int ermittent sinus arrhythmia and changing T wave morphology at times Initially presented to the ED with progressive left-sided cervical pain with radiation to the left shoulder and chest. While in the ED he had a syncopal episode while sitting in bed during an acute episode of pain with associated 10- second pause on telemetry Patient is currently with a nonfocal neurologic exam, no reported seizure-like activity or loss of bowel or bladder function. Episode appears to be cardiac in nature Patient does not remember the event, just remembers waking people surrounding him Thus far 2 high-sensitivity troponin levels, potassium, and magnesium are stable Patient has remained stable on room air Will obtain TSH with reflex T4 if needed, tickborne panel, urgent TTE Cardiology has been consulted and messaged for evaluation as patient may require a pacemaker during this admission Will obtain D-dimer, if positive will obtain CTA of the chest to monitor for possible PE as he is high risk with his morbid obesity, heavy tobacco use, and limited mobility due to chronic low back pain Holding home metoprolol for now, he did have his a.m. dose Will likely need to hold timolol eyedrops at time admission until he is evaluated by Cardiology N.p.o. except meds until patient is evaluated by cardiology SQ heparin for DVT prophylaxis AM CBC, CMP, mag, PT/INR patient trops are negative, as per carpenter maintenance recommendations Metoprolol stopped, Losartan started minimize narcotics use due to ANAYA , continue using CPAP (2) Cervical radicular pain: Patient has been experiencing progressive left-sided cervical neck pain with radiation to the left shoulder and chest Pain for started after the patient woke while sleeping in his recliner with his neck in an awkward position Pain is significantly reproducible on palpation of the left cervical paraspinal muscles Patient also experiences significant reproduction of pain when he looks down into the left likely due to pinching cervical nerve root Strength is currently stable in the bilateral upper extremities Pain appears to be associated with likely cervical disc disease causing compression of cervical nerve roots along with associated muscle spasms Unfortunately pain will be difficult to control at the time of admission as we may need to hold most of his narcotics and muscle relaxers with his recent episode of significant sinus pause on telemetry and syncopal episode Will start lidocaine patch, 1 g p.o. Tylenol now followed by every 6 hours scheduled, and patient's home Lyrica Will place consult for pain management to see if they can possibly perform a nerve block while patient is admitted and/or follow-up outpatient - pain is better , continue current treatment (3) Sinus pause: See episode of syncope plan sinus bradycardia secondary to Metoprolol use, stopped, HR in 50s , ECHO, limited study, EF is preserved (4) Hypertension: Currently stable Holding metoprolol due to current bradycardia and syncopal episode Will continue home hydrochlorothiazide for now - Start Losartan, prescription sent to pharmacy patient is insisting on going home he needs to monitor BP at home (5) Tobacco abuse: Patient smokes partially 2 packs of cigarettes a day for 30+ years Currently stable on room air without significant wheezing on exam Will wait to place nicotine patch until patient evaluated by cardiology Start incentive spirometry and as needed O2 to keep SpO2 between 89-92% as he likely has underlying COPD (6) Sleep apnea: Patient explains that he does have a CPAP machine at home but has not used it in for a long time as he was not able to previously tolerate the mask Patient sleeps in a recliner nightly Will order a chest CPAP to see if he can tolerate during admission and order as needed O2 to keep SpO2 between 89-92% continue CPAP use Plan discharge home, Metoprolol stopped Losartan prescribed continue CPAP use follow up with PCP minimize use of narcotics Admission HPI Per Admitting Provider Andrea is a 56-year-old male with a past medical history of type II DM, chronic low back pain with postlaminectomy syndrome, tobacco abuse, obesity, GERD, and hypertension Who presented to the [facility] ED on 11/30/2023 with an initial complaint of left-sided neck pain with radiation into the left shoulder and left chest. On arrival to the ED patient was noted to be hypertensive at 184/100, bradycardic with heart rate in the 40 to 50s, but otherwise stable. Labs including CBC, CMP, mag, initial high-sensitivity troponin were unremarkable. Chest x-ray was read as cardiomegaly with pulmonary vascular congestion. Soft tissue CT of the neck without contrast was read as negative for acute findings. The patient was initially given 10 mg p.o. Flexeril and 50 mg IV Toradol. While in the ED the patient had a progressive bradycardia and an episode of syncope while sitting in his bed associated with an approximately 10-second pause on telemetry. We are asked to admit the patient for ongoing evaluation and possible treatment of his bradycardia and significant sinus pauses with associated syncopal episode. Patient was seen in bed in no acute distress at the time of exam with his friend, Dennise, bedside. History is obtained from both. Dennise lives with the patient and helps care for him. They explained that the patient started to develop his left sided neck pain with radiation into the left shoulder left back and left chest approximately 2 weeks ago. The pain for started after he woke up while sleeping in his recliner, he felt as though he slept on his neck in an odd position. The patient states that the pain was initially mild to moderate but has increased in severity over this time. He states it significantly exacerbated when he turns his head to the left and looks down. Describes his pain as sharp stabbing sensation with associated paresthesias. Does not believe that he has increased weakness in the left upper extremity compared to right. Has been using his home baclofen, hydrocodoneacetaminophen, and Lyrica without improvement in the symptoms. Presented to the ED this morning due to his pain being so severe. The patient's friend, Dennise, witnessed the patient's loss of consciousness while sitting in bed while in the ED. She states that the patient had a sudden and severe episode of pain. She states his eyes got very big he dropped his coffee which she was holding in his right hand, stiffened, and was not responding. The patient states the only thing he remembers from this episode is a loud crash then waking with many people surrounding him. When asked, the patient confirms that he had all of his morning medications including his home dose of metoprolol to tartrate. The patient has smoked close to 2 packs of cigarettes daily for 30+ years but denies alcohol use. We discussed CODE STATUS, he is a full code and would want his friend, Dennise Sagar, to make medical decisions for him if he cannot make them himself. Please refer to Dr. Malik' attestation for any changes to the treatment plan Updated Medication List Medication Instructions Recorded Confirmed Type baclofen 10 mg tablet 10 mg PO TID 12/26/17 11/30/23 History hydrochlorothiazide 50 mg tablet 50 mg PO QAM 12/26/17 11/30/23 History insulin aspart U-100 100 unit/mL 1 dose subcut TIDWMEAL 12/26/17 11/30/23 History (3 mL) subcutaneous pen (Novolog FlexPen U-100 Insulin aspart) insulin detemir U-100 100 unit/mL 70 unit subcut HS 12/26/17 11/30/23 History (3 mL) subcutaneous pen (Levemir FlexTouch U-100 Insulin) metformin 1,000 mg tablet 1,000 mg PO BID 12/26/17 11/30/23 History oxycodone 15 mg tablet,crush 15 mg PO Q12H 12/26/17 11/30/23 History resistant,extended release 12 hr (OxyContin) pregabalin 150 mg capsule (Lyrica) 150 mg PO TID 12/26/17 11/30/23 History tamsulosin 0.4 mg capsule 0.4 mg PO QAM 12/26/17 11/30/23 History timolol 0.25 % eye drops 1 drp OPB QAM 12/26/17 11/30/23 History travoprost 0.004 % eye drops 1 drp OPB PM 12/26/17 11/30/23 History (Travatan Z) aspirin 81 mg tablet,delayed 81 mg PO DAILY 07/21/22 11/30/23 History release sennosides 8.6 mg-docusate sodium 2 tab PO BID #60 tabs 07/22/22 11/30/23 Rx 50 mg tablet (Senokot-S) docusate sodium 100 mg tablet 200 mg PO BID 10/24/22 11/30/23 History gemfibrozil 600 mg tablet 600 mg PO BID 10/24/22 11/30/23 History omeprazole 40 mg capsule,delayed 40 mg PO QAM 10/24/22 11/30/23 History release hydrocodone 7.5 mg-acetaminophen 1 tab PO TID PRN Pain 07/04/23 11/30/23 History 325 mg tablet losartan 100 mg tablet 100 mg PO DAILY #30 tabs 12/01/23 Rx Hospital Stay Data Consultations 11/30/23 11:11 ED Decision to Admit Stat 11/30/23 11:47 Consult Cardiology Routine 11/30/23 12:40 Consult Pain Management Routine Diagnostic Imagining Performed 11/30/23 10:19 CT soft tissue neck w con Stat Pending Results Patient Have Any Pending Studies at Discharge: No Discharge Instructions Given to Patient (Per Discharging Provider) follow up with PCP in 7 days Home Health Attestation I certify that this patient is under my care and that I, or a physicians metal forger's assistant working with me, had a face to-face encounter that meets the home health [id number] encounter requirements with this patient. The encounter with the patient was in whole, or in part, for the following medical condition, which is the primary reason for home health care (list medical condition): I certify that, based on my findings, the following services are medically necessary home health services: My clinical findings support the need for the above services because: Further, I certify that my clinical findings support that this patient is homebound (i.e. absences from home require considerable and taxing effort and are for medical reasons or mu-ism services or infrequently or of short duration when for other reasons) because: Certification for Home Health Services: Based on the above findings, I certify that this patient is confined to the home and needs intermittent alf care, physical therapy and/or speech therapy or continues to need occupational therapy. The patient is under my care, and I have initiated the establishment of the plan of care. This patient will be followed by a physician who will periodically review the plan of care. Total Time Total Time Spent Total Time Spent (In Minutes): 40 min Coding Level of Care Code 20977 INP/OBS DISCH >30 MIN Diagnoses Episode of syncope R55 Cervical radicular pain M54.12 Sinus pause I45.5 Hypertension I10 Tobacco abuse Z72.0 Sleep apnea G47.30
[2023-12-01 18:37] VITALS: BP 130/66; PULSE 45
[2023-12-01] MEDS ORDERED: LOSARTAN POTASSIUM 50 MG TAB PO SCH (21:00)
[2023-12-02] MEDS ORDERED: INSULIN ASPART PER UNIT CHARGE SC SCH (08:00)
[2023-12-03 06:42] LABS: Babesia microti DNA Not Detected (Not Detected)
== END 2023-12-01 18:42 | disposition home or self-care (01) | DRG 309 ==
LOC: ED 09:35 → INTOOBSV 11:39 → SUATTDRO 11:39 → 4W 11:39